=== PATIENT | male | born 1945 | race Caucasian/White ===

== ENCOUNTER 2016-06-17 09:07 | Inpatient (IN) | payer OTHER ==
[2016-06-17] VITALS (7 sets, daily range): BP systolic 117–147; BP diastolic 60–77; PULSE 72–80; RESP 18–20; TEMP 96.9–98.6; O2SAT 91–94
[~2016-06-17] VITALS: Ht 172.7 cm; Wt 80.7 kg
[~2016-06-17 09:07] MED LIST: AMIT50TA3 PO; AMLO5TAB92 PO; ASPI-1063 PO; BENA40TA2 PO; BUPR150T28 PO; GABA-331 PO; HYDR12.5 PO; LEVE500T13 PO; METO50TA7 PO; SIMV40TA5 PO
--- NOTE | 2016-06-17 09:17 | NUR ---
# 20 gauge angiocath placed to left hand. Use of asceptic technique. Opsite placed over site. Blood return noted. Flushed with 10 cc of normal saline. No evidence of infiltration noted. Patient tolerated well.
--- NOTE | 2016-06-17 09:18 | NUR ---
MD Mcmahon ar bedside.
--- NOTE | 2016-06-17 09:19 | NUR ---
Placed in room 5 . Placed on classroom monitor, blood pressure machine and pulse oximeter. To gown for exam. Side rails up.
[2016-06-17] MEDS ORDERED: KETOROLAC TROMETHAMINE 15 MG VIAL IVP ONE (09:30)
[2016-06-17 10:04] LABS: HEMOGLOBIN 10.3 g/dL (14.0-18.0); MEAN CORPUSCULAR HEMOGLOBIN 25 pg (27-31); MEAN CORPUSCULAR HGB CONC 32 % (32-36); MEAN CORPUSCULAR VOLUME 78 fL (79.0-98.0); PLATELET COUNT (AUTO) 364 K/uL (130-430); RED BLOOD CELL COUNT(AUTO) 4.12 MIL/uL (4.2-6.2); RED CELL DISTRIBUTION WIDTH 14.9 % (9.0-15.0); WHITE BLOOD COUNT (AUTO) 16.6 K/uL (4.8-10.8)
[2016-06-17 10:12] LABS: BLOOD GAS PH 7.428 (7.350-7.450)
[2016-06-17 10:13] LABS: ABG TOTAL HEMOGLOBIN 10.6 G/dL (12.0-18.0); BLOOD GAS BASE EXCESS 7.7 mmol/L (-3.0-3.0); BLOOD GAS COHb% 0.5 % (0.5-1.5); BLOOD GAS HHB 7.4 % (0.0-6.0); BLOOD O2Hb% 91.6 % (94.0-97.0)
[2016-06-17 10:14] LABS: ANION GAP 4 (5-15); CALCIUM 9.3 mg/dL (8.4-11.0); CHLORIDE 102 mmol/L (98-107); CREATININE 1.05 mg/dL (0.55-1.30); GLUCOSE 168 mg/dL (70-99); POTASSIUM 3.2 mmol/L (3.5-5.1); SODIUM SERUM 141 mmol/L (136-145); UREA NITROGEN, BLOOD 14 mg/dL (8-21)
[2016-06-17] MEDS ORDERED: ALBUTEROL SULFATE 0.083% 2.5 MG/3 ML VIAL.NEB IH ONE (10:15)
[2016-06-17] MEDS ORDERED: IPRATROPIUM BROM 0.5 MG/2.5 ML VIAL.NEB (ATROVENT) IH ONE (10:15)
[2016-06-17 10:19] LABS: ALANINE AMINOTRANSFERASE 18 U/L (12-78); ALBUMIN 3.4 g/dL (3.4-4.8); ASPARTATE AMINOTRANSFERASE 16 U/L (10-37); TOTAL BILIRUBIN 0.3 mg/dL (0.0-1.0); TOTAL PROTEIN, SERUM 7.4 g/dL (6.4-8.3)
--- NOTE | 2016-06-17 10:34 | NUR ---
Pt returned from X-Ray, experiencing back pain rates 9/10, V/S stable.
[2016-06-17] MEDS ORDERED: ONDANSETRON HCL 4 MG/2 ML VIAL IVP ONE (10:45)
[2016-06-17] MEDS ORDERED: MORPHINE 2 MG/ML INJ. SYRINGE IVP ONE (10:45)
[2016-06-17] MEDS ORDERED: POTASSIUM CHLORIDE 20 MEQ TAB.PRT.SR PO ONE (10:45)
--- NOTE | 2016-06-17 10:47 | NUR ---
Telemetry strip printed, interpreted as SINUS RHYTHM at 73 bpm, and placed on the chart.
[2016-06-17 10:54] LABS: ATYPICAL LYMPHOCYTES % 0 % (0-0); BAND % (MANUAL) 0 % (0-6); BASOPHILS % (MANUAL) 0 % (0-2); EOSINOPHILS % (MANUAL) 2 % (0-7); LYMPHOCYTES % (MANUAL) 10 % (20-46); MONOCYTES % (MANUAL) 6 % (0-11)
[2016-06-17] MEDS ORDERED: MORPHINE 2 MG/ML INJ. SYRINGE IVP PRN (11:00)
--- NOTE | 2016-06-17 11:00 | NUR ---
Dr. Mcmahon at bedside discussing plan of care with patient and visitor
--- NOTE | 2016-06-17 11:02 | NUR ---
Medicated with Morphine 2mg IVP per Dr. Mcmahon's order for 10/10 back pain, VS updated teach back fall precautions provided. On cardiac/SaO2 monitor with high alarms, bed low brake on side rails x 2 primary nurse notified
--- NOTE | 2016-06-17 11:29 | NUR ---
ADMISSION NOTE Received patient from ER via gurney. Patient admitted with diagnosis of Intractable back paion and Syncope. Patient is awake, alert, oriented X 3. Patient oriented to hospital room, call light, toileting, pain management and safety-teach back done. Patient informed that Brenda will be his nurse and that their room number is 134 [id number]. Personal belongings checked and Belongings List documented. Call light within reach.
--- NOTE | 2016-06-17 11:35 | NUR ---
Patient will be admitted to care of [facility]. Admitted to unit. Will go to room . Belongings list completed. Summary report printed. Report given to .
--- NOTE | 2016-06-17 13:00 | NUR ---
NOTE REC'D PT FROM ADMIT ALESSIA NESS AT THIS TIME. WENT IN AND MET PT AND HIS . ORIENTED PT TO ROOM AND NURSING ROUTINES AND PROCEDURES AT THIS TIME. PT RESTING IN BED WITH O2 ON AT 2L/NC. IV IN LEFT HAND INTACT AND PATENT AT THIS TIME. QUESTIONS/COMCERNS WERE ANSWERED AT THIS TIME. CALL LIGHT WITHIN REACH.
--- NOTE | 2016-06-17 13:52 | NUR ---
NOTE DR RIVAS WAS CALLED AND NOTIFIED THAT OUR CT MACHINE IS DOWN TILL TOMORROW. DR RIVAS SAID OKAY FOR TOMORROW. CALL LIGHT WITHIN REACH.
[2016-06-17] MEDS ORDERED: IPRATROPIUM BROM 0.5 MG/2.5 ML VIAL.NEB (ATROVENT) INH PRN (14:00)
[2016-06-17] MEDS ORDERED: ALBUTEROL SULFATE 0.083% 2.5 MG/3 ML VIAL.NEB INH PRN (14:00)
--- NOTE | 2016-06-17 16:30 | NUR ---
NOTE PT HAS BEEN RESTING IN BED. PT'S CAME BACK FROM HOME BRINING IN PT'S C-PAP FROM HOME FOR PT TO USE TONIGHT, PT'S HYGIENE KIT AND SOCKS AND SLIPPERS. PT DID NOT TOLERATE PT WELL THIS AFTERNOON DUE TO LOWER BACK PAIN AND SOB, THOUGH PT WAS ON O2 CYCLINDER DURING AMBULATION. PT RESTING IN BED WITH BY HIS SIDE. CALL LIGHT WITHIN REACH.
--- NOTE | 2016-06-17 17:15 | NUR ---
NOTE PT AND HIS ARE WAITING TO SPEAK TO DR RIVAS AT THIS TIME. DENIES ANY NEEDS AT THIS TIME. CALL LIGHT WITHIN REACH.
--- NOTE | 2016-06-17 18:20 | NUR ---
NOTE PT SITTING UP IN BED EATING HIS DINNER. VSS. NO SOB/RESP DISTRESS OR SEVERE BACK PAIN/DISCOMFORT NOTED AT THIS TIME. NO NEEDS NOTED AT THIS TIME. TELE UNIT INTACT AND ATTACHED AT THIS TIME. CALL LIGHT WITHIN REACH.
--- NOTE | 2016-06-17 19:15 | NUR ---
NOTE DR RIVAS ON THE FLOOR AND ASSESSMENT OF PT BEING DONE AT THIS TIME. PT AND PT'S AT BEDSIDE TO ANSWER DR RIVAS'S QUESTIONS AT THIS TIME.
--- NOTE | 2016-06-17 19:15 | NUR ---
change of shift.pt.initial assessment.pt.presents sob iv lock access.bedrest.slight pain.2 f/u re:pain,sob. call light placed w/in pt's reach.
[2016-06-17] MEDS: ALBUTEROL SULFATE 0.083% 2.5 MG/3 ML VIAL.NEB INH SCH (19:23)
[2016-06-17] MEDS: IPRATROPIUM BROM 0.5 MG/2.5 ML VIAL.NEB (ATROVENT) INH SCH (19:23)
[2016-06-17] MEDS ORDERED: ACETAMINOPHEN 325 MG TABLET PO PRN (19:30)
[2016-06-17] MEDS ORDERED: ONDANSETRON HCL 4 MG/2 ML VIAL IVP PRN (19:30)
[2016-06-17] MEDS ORDERED: HYDROcodone/ACETAMIN 10-325 MG TAB PO PRN (19:30)
[2016-06-17] MEDS ORDERED: guaiFENesin 200 MG/CODEINE 20 MG/ 10 ML UDC PO PRN (19:30)
--- NOTE | 2016-06-17 19:30 | NUR ---
NOTES RECEIVED THE PT FROM THE DAY NURSE,DR SOLITARIO IS AT THE BEDSIDE.PT A/A/[id number] IN PLACE AND SHOWS SR IV INTACT TO LT HAND ,NO REDNESS OR SWELLING NOTED.O2 VIA NC IN PLACE AT 2L/MIN.CALL LIGHT WITHIN REACH ,SAFETY MEASURES IN PROGRESS.CONTINUE TO MONITOR.
[2016-06-17] MEDS ORDERED: LEVOFLOXACIN 500 MG/D5W 100 ML IV SCH (20:00)
--- NOTE | 2016-06-17 21:00 | NUR ---
PT.MEDICATED W/MORPHINE;4MG IVP.abx:ivpb:levaquin adminsitered ;iv acces kine [id number].call light placed w/in pt's reach.c-pap applied / respiratory therpist.
[2016-06-17] MEDS: methylPREDNISolone SOD SUCC 40 MG/ML VIAL IVP SCH (21:30)
[2016-06-17] MEDS: MORPHINE 2 MG/ML INJ. SYRINGE IVP PRN (21:32)
--- NOTE | 2016-06-17 21:35 | NUR ---
NOTES PT WAS MEDICATED BY THE RN.FOR PAIN TO HIS BACK.WILL CONTINUE TO MONITOR.
--- NOTE | 2016-06-17 21:37 | NUR ---
NOTES NURSING REFLECTOR DRILLER AND DEBURRER WAS UNABLE TO FIND THE BACK BRACE.WILL HAVE CENTRAL SUPPLY GET US ONE IN THE AM.
--- NOTE | 2016-06-17 23:36 | NUR ---
NOTES PT RESTING WITH EYES CLOSED ,NO DYSPNEA NOTED.CONTINUE TO MONITOR.
[2016-06-18] VITALS (8 sets, daily range): BP systolic 126–164; BP diastolic 49–97; PULSE 21–92; RESP 18–22; TEMP 97.8–98.7; O2SAT 77–95
[2016-06-18] MEDS ORDERED: ACETYLCYSTEINE 20% 4 ML VIAL (RT) INH SCH
--- NOTE | 2016-06-18 | NUR ---
pt.assessed.pt.presents c-pap.o2 sat%=88% telephoned respiratory dept.apprised the tech.environmental compliance technician 2 f/u. call light placed w/in pt's reach.
[2016-06-18] MEDS: ALBUTEROL SULFATE 0.083% 2.5 MG/3 ML VIAL.NEB INH SCH ×2 (01:15→07:14)
[2016-06-18] MEDS: IPRATROPIUM BROM 0.5 MG/2.5 ML VIAL.NEB (ATROVENT) INH SCH ×4 (01:16→20:56)
--- NOTE | 2016-06-18 01:47 | NUR ---
NOTES PT SLEEPING WITH C PAP ON,NO DISTRESS NOTED.
--- NOTE | 2016-06-18 03:18 | NUR ---
NOTES PT WITH C PAP IN PLACE,CALL LIGHT WITHIN REACH.CONTINUE TO MONITOR.
--- NOTE | 2016-06-18 04:07 | NUR ---
NOTES PT ASKING FOR PAIN MEDICATION AND THEN HE WOULD LIKE TO STAND TO VOID.C PAP REMOVED PER REQUEST.CONTINUE TO MONITOR.
[2016-06-18] MEDS: MORPHINE 2 MG/ML INJ. SYRINGE IVP PRN ×3 (04:14→17:32)
--- NOTE | 2016-06-18 04:30 | NUR ---
pt.assessed.pt.requested pain medication.i have administered morphine:4mg ivp. pt.had removed the c-pap apparatus. i assessed the o2 %=90.i applied o2=3l/min vi nasal cannulae.o2 sat %re-assessed.o2 sat improved 93% 2 f/u. call light placed w/in pt's reach.
--- NOTE | 2016-06-18 05:20 | NUR ---
NOTES PT VOIDED 500CC OF NATALIA COLORED URINE VIA THE URINAL.CALL LIGHT WITHIN REACH.PT IS C/O THE MONITOR WIRES AND THE NC ARE TANGLED UP.WIRES UNTANGLED.PT WITH NO OTHER COMPLAINTS.
--- NOTE | 2016-06-18 06:10 | NUR ---
CLOSING NOTES CLOSING NOTES RESTING WITH WITH EYES CLOSED.WILL ENDORSE THE CARE OF THE RT TO THE DAY NURSE
[2016-06-18] MEDS ORDERED: INSULIN REGULAR, HUMAN 100 UNITS/ML, 10 ML VIAL (novoLIN R) SUBCUT PRN (07:00)
[2016-06-18 07:08] LABS: BASOPHILS % (AUTO) 0.1 % (0.0-2.0); HEMATOCRIT 30.3 % (36-54); HEMOGLOBIN 9.6 g/dL (14.0-18.0); LYMPHOCYTES # (AUTO) 0.6 K/uL (1.0-5.5); LYMPHOCYTES % (AUTO) 5.1 % (20.5-51.5); MEAN CORPUSCULAR HEMOGLOBIN 24 pg (27-31); MEAN CORPUSCULAR HGB CONC 32 % (32-36); MEAN CORPUSCULAR VOLUME 77 fL (79.0-98.0); MONOCYTES # (AUTO) 0.2 K/uL (0.0-1.0); MONOCYTES % (AUTO) 1.8 % (1.7-9.3); NEUTROPHILS # (AUTO) 11.7 K/uL (1.8-7.7); PLATELET COUNT (AUTO) 307 K/uL (130-430); RED BLOOD CELL COUNT(AUTO) 3.94 MIL/uL (4.2-6.2); RED CELL DISTRIBUTION WIDTH 14.6 % (9.0-15.0); WHITE BLOOD COUNT (AUTO) 12.5 K/uL (4.8-10.8)
[2016-06-18 07:20] LABS: ANION GAP 5 (5-15); CALCIUM 8.9 mg/dL (8.4-11.0); CHLORIDE 99 mmol/L (98-107); CREATININE 0.81 mg/dL (0.55-1.30); GLUCOSE 148 mg/dL (70-99); PHOSPHORUS 4.1 mg/dL (2.7-4.5); POTASSIUM 3.6 mmol/L (3.5-5.1); SODIUM SERUM 137 mmol/L (136-145); UREA NITROGEN, BLOOD 12 mg/dL (8-21)
[2016-06-18 07:42] LABS: BLOOD GAS PH 7.436 (7.350-7.450)
[2016-06-18 07:43] LABS: ABG TOTAL HEMOGLOBIN 10.7 G/dL (12.0-18.0); BLOOD GAS COHb% 0.9 % (0.5-1.5); BLOOD GAS HHB 24.5 % (0.0-6.0); BLOOD O2Hb% 74.1 % (94.0-97.0)
--- NOTE | 2016-06-18 08:00 | NUR ---
Initial Note Patient A/O x4. Respirations even and unlabored with use of Oxymizer. Pain tolerable as long as movement is kept to a minimum per patient statement. Family at bedside. Plan of care reviewed with patient and . Use of call light reviewed with patient. Fall and safety precautions in place.
--- NOTE | 2016-06-18 08:05 | NUR ---
Notes Informed Dr. Marte of critical ABG, low O2 saturation of 75% and BNP. Stated patient was placed on oxymizer of 6. She stated that was fine, no new orders were given.
--- NOTE | 2016-06-18 09:05 | NUR ---
Nutrition Update Mohinder Scale 14 noted. Pt admitted for syncope/intractable back pain. Diet: [facility] BMI: 27.1 kg/m2 RD to follow per nutrition care standards.
[2016-06-18] MEDS: buPROPion HCL 150 MG TABLET.SA PO SCH (09:42)
[2016-06-18] MEDS: LACTOBACILLUS RHAMNOSUS GG 1 CAP CAPSULE PO SCH ×2 (09:42→20:04)
[2016-06-18] MEDS: METOPROLOL SUCCINATE 50 MG TAB.SR.24H (TOPROL XL) PO SCH (09:43)
[2016-06-18] MEDS: ASPIRIN 81 MG TABLET(ECOTRIN) PO SCH (09:44)
[2016-06-18] MEDS: BENAZEPRIL HCL 20 MG TABLET (LOTENSIN) PO SCH (09:45)
[2016-06-18] MEDS: methylPREDNISolone SOD SUCC 40 MG/ML VIAL IVP SCH ×2 (09:48→20:04)
[2016-06-18] MEDS: amLODIPine BESYLATE 10 MG TABLET PO SCH (09:50)
[2016-06-18] MEDS ORDERED: CHOLECALCIFEROL (VITAMIN D3) 2,000 UNIT TABLET PO ONE (10:15)
[2016-06-18] MEDS ORDERED: IOHEXOL 100 ML IV ONE (11:40)
[2016-06-18] MEDS: HYDROcodone/ACETAMIN 5-325 MG TAB (NORCO/ VICODIN) PO PRN (11:45)
--- NOTE | 2016-06-18 13:00 | NUR ---
Notes Patient stated he had difficulty breathing. O2 saturation checked to be 94%, positioned patient upright, had patient perform breathing technique in order to relax. Patient quickly resumed regular breathing pattern.
[2016-06-18] MEDS: LEVALBUTEROL HCL 0.63 MG/3 ML VIAL.NEB INH SCH (13:59)
[2016-06-18] MEDS: CALCIUM 500 MG/TAB PO SCH ×2 (15:10→20:05)
--- NOTE | 2016-06-18 15:50 | NUR ---
Notes Informed Dr. Araya of abnormal CTA Neck with contrast results. TO given to consult Mary Cruz. TO entered.
--- NOTE | 2016-06-18 17:43 | NUR ---
Notes Dr. Marte was made aware that Dr. Blake was unavailable to consult. She gave TO to consult Lorie Dang and if he was not available to consult Dr. Sandhu. Dr. Puente's exchange has been informed of need for consult.
--- NOTE | 2016-06-18 18:56 | NUR ---
Notes Lorie Dang has called and was informed of the request for consult. Report given via SBAR. Dr. Puente requested for CD of CTA neck to be ready when he comes in to see patient. Radiology department has been informed and asked to create CD.
--- NOTE | 2016-06-18 18:59 | NUR ---
Closing Note Patient needs met throughout shift. Patient tolerating oxymizer well. Will continue to monitor until patient care is endorsed to oncoming shift nurse.
--- NOTE | 2016-06-18 19:45 | NUR ---
PM SHIFT ASSESSMENT Received patient sitting up in bed, aox4, in no distress, Oxymizer @ 6l in place, vitals stable. Patient denies any pain or discomfort at this time. Lumbosacral back brace in place, patient updated on plan of care. Verbalized understanding, compliant. Oriented to use call light and phone for nurse assistance. Fall and safety measures in place, will continue to monitor.
[2016-06-18] MEDS: SIMVASTATIN 40 MG TABLET PO SCH (20:04)
[2016-06-18] MEDS: AMITRIPTYLINE HCL 25 MG TABLET (ELAVIL) PO SCH (20:04)
--- NOTE | 2016-06-18 20:11 | NUR ---
MD Dr. Puente ( vascular surgeon) at patient's bedside. Patient's due medications given, educated on fall and side effects. Patient verbalized understanding. Safety measures in place.
--- NOTE | 2016-06-18 20:31 | NUR ---
CHECKED ON THE PATIENT RIGHT NOW PATIENT IS IN BED SLEEPING
--- NOTE | 2016-06-18 21:58 | NUR ---
CHECKING ON THE PATIENT IF HE NEEDS ANYTHING PATIENTSTATED HIS OKAY
--- NOTE | 2016-06-18 22:17 | NUR ---
RN ROUNDS Patient was on cpap but 02 saturation low, patient is alert and denies any shortness of breath, rt at bedside administering breathing tx. Will monitor patient.
--- NOTE | 2016-06-18 23:15 | NUR ---
RN ROUNDS Patient resting quietly in bed, o2 sat on cpap 90% at this time.
[2016-06-19] VITALS (7 sets, daily range): BP systolic 134–169; BP diastolic 77–93; PULSE 76–87; RESP 18; TEMP 97.1–98.2; O2SAT 92–97
--- NOTE | 2016-06-19 00:08 | NUR ---
RN ROUNDS Patient sleeping, respirations even and unlabored, remains on cpap. vitals stable, safety measures in place, call light within reach, will monitor.
--- NOTE | 2016-06-19 01:12 | NUR ---
checked on patient he is sleeping for now
[2016-06-19] MEDS: LEVALBUTEROL HCL 0.63 MG/3 ML VIAL.NEB INH SCH ×4 (01:28→19:35)
[2016-06-19] MEDS: IPRATROPIUM BROM 0.5 MG/2.5 ML VIAL.NEB (ATROVENT) INH SCH ×4 (01:29→19:34)
--- NOTE | 2016-06-19 02:19 | NUR ---
PATIENT IS SLEEPING
--- NOTE | 2016-06-19 02:30 | NUR ---
RN ROUNDS Patient sleeping, respirations even and unlabored, remains on cpap. Safety measures in place, call light within reach, will monitor.
--- NOTE | 2016-06-19 03:45 | NUR ---
CPAP Patient removed cpap states he doesn't want to wear it anymore. Placed back on Oxymizer @ 3L. RT aware.
[2016-06-19] MEDS: MORPHINE 2 MG/ML INJ. SYRINGE IVP PRN (04:13)
--- NOTE | 2016-06-19 04:15 | NUR ---
RN ROUNDS Patient awake, c/o of back pain, medicated with morphine 4 mg IVP for pain management, vitals stable, safety measures in place, call light within reach, will monitor.
[2016-06-19] MEDS ORDERED: RISEDRONATE SODIUM 35 MG TABLET PO SCH (06:00)
--- NOTE | 2016-06-19 06:44 | NUR ---
RN ROUNDS Patient awake, no sob noted, remains on Oxymizer 3 liters, denies any pain or discomfort at this time. Patient needs attended to, safety measures in place, call light within reach, will continue to monitor until report given to am nurse.
[2016-06-19 07:27] LABS: BASOPHILS % (AUTO) 0.1 % (0.0-2.0); HEMATOCRIT 30.6 % (36-54); HEMOGLOBIN 9.8 g/dL (14.0-18.0); LYMPHOCYTES # (AUTO) 1.2 K/uL (1.0-5.5); LYMPHOCYTES % (AUTO) 7.3 % (20.5-51.5); MEAN CORPUSCULAR HEMOGLOBIN 25 pg (27-31); MEAN CORPUSCULAR HGB CONC 32 % (32-36); MEAN CORPUSCULAR VOLUME 79 fL (79.0-98.0); MONOCYTES % (AUTO) 6.5 % (1.7-9.3); NEUTROPHILS # (AUTO) 13.9 K/uL (1.8-7.7); NEUTROPHILS % (AUTO) 86.1 % (40.0-70.0); PLATELET COUNT (AUTO) 365 K/uL (130-430); RED CELL DISTRIBUTION WIDTH 14.6 % (9.0-15.0); WHITE BLOOD COUNT (AUTO) 16.1 K/uL (4.8-10.8)
[2016-06-19 07:48] LABS: ANION GAP 5 (5-15); CALCIUM 9.3 mg/dL (8.4-11.0); CHLORIDE 101 mmol/L (98-107); CREATININE 0.68 mg/dL (0.55-1.30); GLUCOSE 141 mg/dL (70-99); POTASSIUM 3.8 mmol/L (3.5-5.1); SODIUM SERUM 140 mmol/L (136-145); UREA NITROGEN, BLOOD 14 mg/dL (8-21)
--- NOTE | 2016-06-19 08:05 | NUR ---
INITIAL ROUNDS Received pt AAOx4, no s/s resp distress, c/o pain to his back-back brace readjusted for support and comfort. Will check on pain medications. Plan of care for the day reviewed with pt-pt verbalized his understanding. Pain control, skin and safety discussed-teach back done. Pt encouraged to call nursing for assist to bedside chair for safety-pt verbalized his understanding. Contact phone number explained, call light within reach.
[2016-06-19] MEDS: methylPREDNISolone SOD SUCC 40 MG/ML VIAL IVP SCH ×2 (08:53→21:11)
[2016-06-19] MEDS: MORPHINE 4 MG/ML INJ. SYRINGE IVP PRN ×4 (08:53→21:11)
[2016-06-19] MEDS: LACTOBACILLUS RHAMNOSUS GG 1 CAP CAPSULE PO SCH ×2 (08:55→20:14)
[2016-06-19] MEDS: CHOLECALCIFEROL (VITAMIN D3) 2,000 UNIT TABLET PO SCH (08:55)
[2016-06-19] MEDS: CALCIUM 500 MG/TAB PO SCH ×3 (08:55→20:14)
[2016-06-19] MEDS: ASPIRIN 81 MG TABLET(ECOTRIN) PO SCH (08:55)
[2016-06-19] MEDS: BENAZEPRIL HCL 20 MG TABLET (LOTENSIN) PO SCH (08:56)
[2016-06-19] MEDS: METOPROLOL SUCCINATE 50 MG TAB.SR.24H (TOPROL XL) PO SCH (08:57)
[2016-06-19] MEDS: amLODIPine BESYLATE 10 MG TABLET PO SCH (08:58)
[2016-06-19] MEDS: buPROPion HCL 150 MG TABLET.SA PO SCH (08:58)
--- NOTE | 2016-06-19 10:13 | NUR ---
met with pt at bedside. he is alert. lives in home with spouse. has fww, cpap with o2 at [facility]. brace ordered from [employer] yesterday. plan home tomorrow when pain is more controlled. at bedside and encouraged to learn safety techniques for assisting spouse. [facility]/frederic/nathaly hcp [phone]
--- NOTE | 2016-06-19 10:39 | NUR ---
ROUNDS Pt sitting up in bed visiting with his , no c/o SOB, no s/s resp distress, no further c/o pain or discomfort. Pt's back brace readjusted for comfort and support. Needs met, call light within reach.
--- NOTE | 2016-06-19 13:10 | NUR ---
ROUNDS/PAIN Pt in bed visiting with his , no s/s resp distress, c/o pain to his back-pt given Morphine as ordered. Pt repositioned for comfort. Call light within reach.
--- NOTE | 2016-06-19 13:15 | NUR ---
PHYSICAL THERAPY CO-SIGN The Physical Therapy Progress Notes documented by Straight Knife Machine Cutter have been reviewed. Reviewed/Co-Signed by: Sydney Bhatti, PT Documentation Done by: Jef White PTA I concur with the documentation of this MIDDLE SCHOOL VOLLEYBALL COACH. Plan: continue PT as per plan of care. Addendum: 06/19/16 at 1332 by Sydney Bhatti PT Amended: Links added.
[2016-06-19] MEDS: HYDROcodone/ACETAMIN 5-325 MG TAB (NORCO/ VICODIN) PO PRN (15:25)
--- NOTE | 2016-06-19 15:35 | NUR ---
ROUNDS/PAIN Pt c/o low back pain, pt given Galt as ordered. Pt assisted with repositioning in bed and with back brace for comfort. Needs met, call light within reach.
--- NOTE | 2016-06-19 18:40 | NUR ---
CLOSING NOTE Pt resting quietly in bed with no s/s resp distress, no further c/o pain or discomfort. Needs met, call light within reach.
--- NOTE | 2016-06-19 19:50 | NUR ---
NOTES; SEEN PT IN BED. A/A/O X4, NO ACUTE DISTRESS NOTED. VITAL SIGNS STABLE, AFEBRILE. PT IS ON OXYMIZER AT 2L OF O2. BACK BRACE IN PLACE. IV SALINE LOCK TO THE LEFT HAND, PATENT. PT STATED TOLERABLE PAIN AT THIS TIME. BED LOCKED AND IN LOW POSITION, SIDE RAILS UP X3 PER PT REQUEST. INSTRUCTED PT ON THE USE OF CALL LIGHT . PT VERBALIZED UNDERSTANDING. CALL LIGHT AND BEDSIDE TABLE WITHIN REACH.
[2016-06-19] MEDS: SIMVASTATIN 40 MG TABLET PO SCH (20:14)
[2016-06-19] MEDS: AMITRIPTYLINE HCL 25 MG TABLET (ELAVIL) PO SCH (20:14)
--- NOTE | 2016-06-19 20:19 | NUR ---
NOTES; SCHEDULED PO MEDICATION ADMINISTERED. PT TOLERATED MEDS WELL. WILL CONTINUE TO MONITOR.
--- NOTE | 2016-06-19 22:00 | NUR ---
NOTES; RT ASSISTED PT WITH. APPLICATION OF C-PAP. PT TOLERATING C-PAP WELL.
[2016-06-20] VITALS (12 sets, daily range): BP systolic 130–158; BP diastolic 62–88; PULSE 63–98; RESP 17–19; TEMP 97.8–99; O2SAT 89–95
--- NOTE | 2016-06-20 | NUR ---
NOTES; Patient sleeping, respirations even and unlabored, remains on cpap. Safety measures in place, call light within reach, will monitor.
[2016-06-20] MEDS: LEVALBUTEROL HCL 0.63 MG/3 ML VIAL.NEB INH SCH ×2 (01:00→08:11)
[2016-06-20] MEDS: IPRATROPIUM BROM 0.5 MG/2.5 ML VIAL.NEB (ATROVENT) INH SCH ×5 (01:00→23:28)
--- NOTE | 2016-06-20 02:00 | NUR ---
NOTES; Patient sleeping, respirations even and unlabored, remains on cpap. Safety measures in place, call light within reach, will monitor.
[2016-06-20] MEDS: MORPHINE 4 MG/ML INJ. SYRINGE IVP PRN ×3 (03:55→14:05)
--- NOTE | 2016-06-20 04:00 | NUR ---
NOTES; Patient sleeping, respirations even and unlabored, remains on cpap. Safety measures in place, call light within reach, will monitor.
--- NOTE | 2016-06-20 06:50 | NUR ---
NOTES; Patient awake, no sob noted, remains on Oxymizer 2 liters, denies any pain or discomfort at this time. Patient needs attended to, safety measures in place, call light within reach, will continue to monitor until report given to am nurse.
--- NOTE | 2016-06-20 07:20 | NUR ---
initial notes: pt on bed resting. i.v. access patent. discussed plan of care. call light within reach. report given at bedside.
[2016-06-20] MEDS: methylPREDNISolone SOD SUCC 40 MG/ML VIAL IVP SCH (08:41)
[2016-06-20] MEDS: CHOLECALCIFEROL (VITAMIN D3) 2,000 UNIT TABLET PO SCH (08:41)
[2016-06-20] MEDS: METOPROLOL SUCCINATE 50 MG TAB.SR.24H (TOPROL XL) PO SCH (08:42)
[2016-06-20] MEDS: BENAZEPRIL HCL 20 MG TABLET (LOTENSIN) PO SCH (08:43)
[2016-06-20] MEDS: ASPIRIN 81 MG TABLET(ECOTRIN) PO SCH (08:43)
[2016-06-20] MEDS: buPROPion HCL 150 MG TABLET.SA PO SCH (08:43)
[2016-06-20] MEDS: amLODIPine BESYLATE 10 MG TABLET PO SCH (08:44)
[2016-06-20] MEDS: CALCIUM 500 MG/TAB PO SCH ×3 (08:44→21:04)
[2016-06-20] MEDS: LACTOBACILLUS RHAMNOSUS GG 1 CAP CAPSULE PO SCH ×2 (08:44→21:04)
--- NOTE | 2016-06-20 09:30 | NUR ---
P.T. seen by PT and able to ambulate in the hallway.
--- NOTE | 2016-06-20 10:00 | NUR ---
rounds: pt on bed. no distress noted. at bedside.
[2016-06-20] MEDS: HYDROcodone/ACETAMIN 7.5-325 MG TAB PO SCH ×3 (12:00→23:39)
[2016-06-20] MEDS: methylPREDNISolone SOD SUCC/PF 62.5 MG/ML VIAL IVP SCH ×2 (14:10→21:04)
[2016-06-20] MEDS ORDERED: MILK OF MAGNESIA 30 ML UDC PO PRN (14:30)
--- NOTE | 2016-06-20 14:30 | NUR ---
B.M. no BM for 3 days as per states and requested BM meds. paged Dr. Hoover with an order of MOM 30cc. P.O. x1 day and qhs PRN.
[2016-06-20] MEDS ORDERED: MILK OF MAGNESIA 30 ML UDC PO ONE (15:00)
[2016-06-20] MEDS: ALBUTEROL SULFATE 0.083% 2.5 MG/3 ML VIAL.NEB INH SCH ×3 (15:26→23:27)
--- NOTE | 2016-06-20 15:30 | NUR ---
rounds: pt on bed. no distress noted. breathing tx given.
--- NOTE | 2016-06-20 19:30 | NUR ---
closing notes: pt on bed resting. stable. at bedside. repositioned patient. report given at bedside.
--- NOTE | 2016-06-20 20:00 | NUR ---
Initial Notes Received patient laying in bed, awake, alert, oriented, family at bedside. Patient denies any acute distress or pain at this time. Vital signs stable. Breathing even and unlabored on 2L Oxymizer. IV site patent/clean/dry. Patient's own CPAP machine noted at bedside, patient states he uses it when he goes to sleep. Patient wearing a back brace/support, tolerating well, stated he fell prior to admission. Educated patient on use of call light for assistance and fall precautions. Patient verbalized understanding. Call light in hand, will continue to monitor.
[2016-06-20] MEDS: SIMVASTATIN 40 MG TABLET PO SCH (21:04)
[2016-06-20] MEDS: AMITRIPTYLINE HCL 25 MG TABLET (ELAVIL) PO SCH (21:05)
--- NOTE | 2016-06-20 22:00 | NUR ---
Rounds Patient resting in bed with eyes closed, easily aroused upon nurse entering room. Patient denies any acute distress or pain. Breathing even and unlabored on home CPAP machine, setting 13 on 7L oxygen. Needs addressed. Call light in hand, fall precautions in place. Will continue to monitor.
[2016-06-21] VITALS (12 sets, daily range): BP systolic 117–157; BP diastolic 66–91; PULSE 63–87; RESP 14–19; TEMP 97.4–98.7; O2SAT 92–96
--- NOTE | 2016-06-21 | NUR ---
Rounds Patient resting in bed with eyes closed, easily aroused upon nurse entering. Patient denies any acute distress or pain at this time. Breathing even and unlabored on CPAP. RT in room adjusting machine. Call light in hand, fall precautions in place. Will continue to monitor.
--- NOTE | 2016-06-21 02:00 | NUR ---
Rounds Patient resting in bed with eyes closed, easily aroused. Patient denies any acute distress or pain at this time. Breathing even and unlabored on CPAP. RT called multiple times for patient due to desaturation on CPAP, patient asymptomatic. Needs addressed. Call light in hand, fall precautions in place. Will continue to monitor.
--- NOTE | 2016-06-21 04:00 | NUR ---
Rounds Patient resting in bed with eyes closed. No distress noted, breathing even and unlabored. Call light in hand, will continue to monitor.
[2016-06-21] MEDS: ALBUTEROL SULFATE 0.083% 2.5 MG/3 ML VIAL.NEB INH SCH ×5 (04:06→23:49)
[2016-06-21] MEDS: IPRATROPIUM BROM 0.5 MG/2.5 ML VIAL.NEB (ATROVENT) INH SCH ×5 (04:06→23:49)
[2016-06-21] MEDS: methylPREDNISolone SOD SUCC/PF 62.5 MG/ML VIAL IVP SCH (05:04)
[2016-06-21] MEDS: HYDROcodone/ACETAMIN 7.5-325 MG TAB PO SCH ×4 (05:04→23:17)
--- NOTE | 2016-06-21 06:29 | NUR ---
Closing Notes Patient resting in bed with eyes closed, easily aroused. Patient denies any acute distress or pain at this time. Breathing even and unlabored on CPAP. IV site patent/clean/dry, no S/S infection/infiltration noted. Needs addressed throughout shift. Call light in hand, fall precautions in place. Will continue to monitor for changes and safety, and endorse all patient care/needs to oncoming nurse.
[2016-06-21 07:02] LABS: BASOPHILS % (AUTO) 0.1 % (0.0-2.0); HEMOGLOBIN 9.9 g/dL (14.0-18.0); LYMPHOCYTES # (AUTO) 1.1 K/uL (1.0-5.5); LYMPHOCYTES % (AUTO) 8.7 % (20.5-51.5); MEAN CORPUSCULAR HEMOGLOBIN 25 pg (27-31); MEAN CORPUSCULAR HGB CONC 32 % (32-36); MEAN CORPUSCULAR VOLUME 77 fL (79.0-98.0); MONOCYTES # (AUTO) 0.4 K/uL (0.0-1.0); MONOCYTES % (AUTO) 3.4 % (1.7-9.3); NEUTROPHILS # (AUTO) 10.6 K/uL (1.8-7.7); NEUTROPHILS % (AUTO) 87.8 % (40.0-70.0); PLATELET COUNT (AUTO) 423 K/uL (130-430); RED BLOOD CELL COUNT(AUTO) 4.02 MIL/uL (4.2-6.2); RED CELL DISTRIBUTION WIDTH 14.7 % (9.0-15.0); WHITE BLOOD COUNT (AUTO) 12.1 K/uL (4.8-10.8)
[2016-06-21 07:17] LABS: ANION GAP 4 (5-15); CALCIUM 9.5 mg/dL (8.4-11.0); CHLORIDE 98 mmol/L (98-107); CREATININE 0.82 mg/dL (0.55-1.30); GLUCOSE 190 mg/dL (70-99); POTASSIUM 4.1 mmol/L (3.5-5.1); SODIUM SERUM 136 mmol/L (136-145); UREA NITROGEN, BLOOD 21 mg/dL (8-21)
--- NOTE | 2016-06-21 07:40 | NUR ---
AM NOTE Received patient laying in bed, awake, alert, oriented, family at bedside, patient denies any acute distress or pain at this time, vital signs stable, assessment complete, IV site patent/clean/dry, patient wearing a back brace for support, tolerating well, Educated patient on use of call light for assistance, patient verbalized understanding. Call light in hand, bed in lowest position, bed alarm on, two side rails up, fall precaution in place, will continue to monitor.
[2016-06-21] MEDS: BENAZEPRIL HCL 20 MG TABLET (LOTENSIN) PO SCH (08:38)
[2016-06-21] MEDS: ASPIRIN 81 MG TABLET(ECOTRIN) PO SCH (08:38)
[2016-06-21] MEDS: LACTOBACILLUS RHAMNOSUS GG 1 CAP CAPSULE PO SCH ×2 (08:38→21:15)
[2016-06-21] MEDS: buPROPion HCL 150 MG TABLET.SA PO SCH (08:38)
[2016-06-21] MEDS: CALCIUM 500 MG/TAB PO SCH ×3 (08:38→21:15)
[2016-06-21] MEDS: amLODIPine BESYLATE 10 MG TABLET PO SCH (08:39)
[2016-06-21] MEDS: CHOLECALCIFEROL (VITAMIN D3) 2,000 UNIT TABLET PO SCH (08:39)
[2016-06-21] MEDS: METOPROLOL SUCCINATE 50 MG TAB.SR.24H (TOPROL XL) PO SCH (08:39)
[2016-06-21] MEDS: CLOPIDOGREL BISULFATE 75 MG TABLET PO SCH (08:39)
--- NOTE | 2016-06-21 08:40 | NUR ---
MEDICATIONS Gave patient morning medications, informed patient of potential side effects of medications, patient verbalized understanding, bed left in lowest position, bed alarm on, two side rails up, call brito in patient's hand, fall precautions in place. Will continue to monitor
[2016-06-21] MEDS: MORPHINE 4 MG/ML INJ. SYRINGE IVP PRN (09:55)
--- NOTE | 2016-06-21 11:00 | NUR ---
RN ROUNDS PATIENT IS RESTING IN BED, NO COMPLAINTS OF PAIN, NO SIGNS OF DISTRESS, INSTRUCTED PATIENT TO USE CALL COYLE IF ASSISTANCE IS NEEDED, PATIENT VERBALIZED UNDERSTANDING, BED ALARM ON, BED IN LOWEST POSITION, TWO SIDE RAILS UP, CALL COYLE IN HAND, FALL PRECAUTIONS IN PLACE, WILL CONTINUE TO MONITOR
[2016-06-21] MEDS ORDERED: HYDROcodone/ACETAMIN 7.5-325 MG TAB PO ONE (12:00)
--- NOTE | 2016-06-21 12:20 | NUR ---
RN ROUNDS PATIENT IS RESTING IN BED, WATCHING TV, NO COMPLAINTS OF DISCOMFORT, INSTRUCTED PATIENT TO USE CALL COYLE WHEN ASSISTANCE IS NEEDED, PATIENT VERBALIZED UNDERSTANDING, BED ALARM ON, BED IN LOWEST POSITION, TWO SIDE RAILS UP, CALL COYLE LEFT IN PATIENT'S HAND, FALL PRECAUTIONS IN PLACE, WILL CONTINUE TO MONITOR
--- NOTE | 2016-06-21 14:30 | NUR ---
RN ROUNDS PATIENT RESTING IN BED, NO COMPLAINTS OF PAIN OR DISCOMFORT, NO SIGNS OF DISTRESS, INSTRUCTED PATIENT TO USE CALL COYLE IF ASSISTANCE IS NEEDED, PATIENT VERBALIZED UNDERSTANDING, BED IN LOWEST POSITION, BED ALARM ON, TWO SIDE RAILS UP, CALL COYLE WITHIN PATIENT'S REACH, FALL PRECAUTIONS IN PLACE, WILL CONTINUE TO MONITOR
--- NOTE | 2016-06-21 16:05 | NUR ---
RN ROUNDS PATIENT IS RESTING IN BED, IS AT BEDSIDE, NO COMPLAINTS OF PAIN OF DISCOMFORT, INSTRUCTED PATIENT TO USE CALL COYLE IF ASSISTANCE IS NEEDED, PATIENT VERBALIZED UNDERSTANDING, CALL COYLE LEFT IN PATIENT'S HAND, BED IN LOWEST POSITION, BED ALARM ON, TWO SIDE RAILS UP, FALL PRECAUTIONS IN PLACE, WILL CONTINUE TO MONITOR PATIENT.
--- NOTE | 2016-06-21 16:30 | NUR ---
Dr. Araya Notified Dr. Araya that patient has been constipated for 5 days and the MOM is not scheduled until HS, Dr. Araya gave new orders of Docusate 250 mg BID daily, MOM 30cc PO x1, Lactulose 30 ml daily PRN for constipation and a fleet enema x1 daily for constipation, will carry out orders.
[2016-06-21] MEDS ORDERED: NA PHOS,M-B/NA PHOS,DI-BA 118 ML (FLEET ENEMA) RC PRN (16:45)
[2016-06-21] MEDS ORDERED: LACTULOSE 20 GM/30 ML UDC PO PRN (16:45)
[2016-06-21] MEDS ORDERED: MILK OF MAGNESIA 30 ML UDC PO ONE (16:45)
--- NOTE | 2016-06-21 18:46 | NUR ---
CLOSING NOTES PATIENT RESTING IN BED, EYES CLOSED, BREATHING IS EVEN AND UNLABORED, NO SIGNS OF DISTRESS, ALL NEEDS MET, BED IN LOWEST POSITION, THREE SIDE RAILS UP, BED ALARM ON, FALL AND ASPIRATION PRECAUTIONS IN PLACE, CALL LIGHT NEXT TO THE PATIENT'S HAND, WILL ENDORSE REPORT TO NOC SHIFT NURSE.
--- NOTE | 2016-06-21 20:00 | NUR ---
Initial Notes and BM Received patient resting in bed, awake, alert, oriented, at bedside. Patient denies any acute distress or luis at this time. Vital signs stable. Breathing even and unlabored on 2L Oximizer. IV site patent/clean/dry. Needs addressed. Per , patient just had a moderate sized bowel movement. Educated patient and family on use of call light for assistance, both verbalized understanding. Call light in hand, will continue to monitor.
[2016-06-21] MEDS ORDERED: methylPREDNISolone SOD SUCC 40 MG/ML VIAL IVP SCH (21:00)
[2016-06-21] MEDS: AMITRIPTYLINE HCL 25 MG TABLET (ELAVIL) PO SCH (21:15)
[2016-06-21] MEDS: DOCUSATE SODIUM 250 MG CAPSULE PO SCH (21:15)
[2016-06-21] MEDS: SIMVASTATIN 40 MG TABLET PO SCH (21:15)
--- NOTE | 2016-06-21 22:00 | NUR ---
Rounds Patient resting in bed with eyes closed, easily aroused. Patient denies any acute distress or pain. Patient currently on CPAP, setting 13, 9L O2 titrated by RT, breathing even and unlabored. Needs addressed. When asked if patient would like to be woken at midnight for scheduled pain medication, patient said 'no'. Call light in hand, fall precautions in place. Will continue to monitor.
[2016-06-22] VITALS (10 sets, daily range): BP systolic 142–154; BP diastolic 71–89; PULSE 61–77; RESP 18–20; TEMP 97.4–99.4; O2SAT 91–94
--- NOTE | 2016-06-22 | NUR ---
Rounds Patient resting in bed with eyes closed. No acute distress noted, breathing even and unlabored on CPAP. Scheduled pain medication held due to patient sleeping. Call light in hand, fall precautions in place. Will continue to monitor.
--- NOTE | 2016-06-22 02:00 | NUR ---
Rounds Patient resting in bed with eyes closed, easily aroused. Patient denies any acute distress or pain. Breathing even and unlabored. Assisted patient to BSC and back to bed. Call light in hand, fall precautions in place. Will continue to monitor.
[2016-06-22] MEDS: IPRATROPIUM BROM 0.5 MG/2.5 ML VIAL.NEB (ATROVENT) INH SCH ×6 (03:34→23:05)
[2016-06-22] MEDS: ALBUTEROL SULFATE 0.083% 2.5 MG/3 ML VIAL.NEB INH SCH ×6 (03:34→23:04)
--- NOTE | 2016-06-22 04:00 | NUR ---
Rounds Patient resting in bed with eyes closed. No acute distress noted, breathing even and unlabored. Call light in hand, will continue to monitor.
[2016-06-22] MEDS: HYDROcodone/ACETAMIN 7.5-325 MG TAB PO SCH ×4 (05:34→18:00)
--- NOTE | 2016-06-22 06:44 | NUR ---
Closing Notes Patient resting in bed with eyes closed, easily aroused. Patient denies any distress or pain at this time. Breathing even and unlabored on 2L Oximizer. IV site patent/clean/dry, no S/S infection/infiltration noted. Needs addressed throughout shift. Call light in hand, fall precautions in place. Will continue to monitor for changes and safety, and endorse all patient care/needs to oncoming nurse.
[2016-06-22 07:21] LABS: ANION GAP 5 (5-15); CALCIUM 8.9 mg/dL (8.4-11.0); CHLORIDE 98 mmol/L (98-107); CREATININE 0.92 mg/dL (0.55-1.30); GLUCOSE 207 mg/dL (70-99); POTASSIUM 4.1 mmol/L (3.5-5.1); SODIUM SERUM 137 mmol/L (136-145); UREA NITROGEN, BLOOD 23 mg/dL (8-21)
[2016-06-22 07:30] LABS: HEMATOCRIT 31.1 % (36-54); HEMOGLOBIN 9.9 g/dL (14.0-18.0); LYMPHOCYTES # (AUTO) 1.2 K/uL (1.0-5.5); LYMPHOCYTES % (AUTO) 8.3 % (20.5-51.5); MEAN CORPUSCULAR HEMOGLOBIN 25 pg (27-31); MEAN CORPUSCULAR HGB CONC 32 % (32-36); MEAN CORPUSCULAR VOLUME 77 fL (79.0-98.0); MONOCYTES # (AUTO) 0.8 K/uL (0.0-1.0); MONOCYTES % (AUTO) 5.7 % (1.7-9.3); NEUTROPHILS # (AUTO) 12.4 K/uL (1.8-7.7); PLATELET COUNT (AUTO) 490 K/uL (130-430); RED BLOOD CELL COUNT(AUTO) 4.05 MIL/uL (4.2-6.2); RED CELL DISTRIBUTION WIDTH 14.9 % (9.0-15.0); WHITE BLOOD COUNT (AUTO) 14.4 K/uL (4.8-10.8)
--- NOTE | 2016-06-22 07:47 | NUR ---
AM Rounds: Received pt sitting high-fowlers in bed. No acute signs of distress noted. IV intact to RUE with no redness or swelling noted to site. Breathing treatment in progress and RT at bedside. No SOB noted. , Kuldeep, at bedside. Call light in reach. Pt educated to call light and verbalizes understanding of need to call prior to ambulating. Bed alarm on. Continue to monitor.
[2016-06-22] MEDS: DOCUSATE SODIUM 250 MG CAPSULE PO SCH ×2 (09:37→20:52)
[2016-06-22] MEDS: CLOPIDOGREL BISULFATE 75 MG TABLET PO SCH (09:37)
[2016-06-22] MEDS: CALCIUM 500 MG/TAB PO SCH ×3 (09:37→20:52)
[2016-06-22] MEDS: ASPIRIN 81 MG TABLET(ECOTRIN) PO SCH (09:37)
[2016-06-22] MEDS: BENAZEPRIL HCL 20 MG TABLET (LOTENSIN) PO SCH (09:37)
[2016-06-22] MEDS: METOPROLOL SUCCINATE 50 MG TAB.SR.24H (TOPROL XL) PO SCH (09:38)
[2016-06-22] MEDS: LACTOBACILLUS RHAMNOSUS GG 1 CAP CAPSULE PO SCH ×2 (09:38→20:52)
[2016-06-22] MEDS: amLODIPine BESYLATE 10 MG TABLET PO SCH (09:38)
[2016-06-22] MEDS: CHOLECALCIFEROL (VITAMIN D3) 2,000 UNIT TABLET PO SCH (09:38)
[2016-06-22] MEDS: buPROPion HCL 150 MG TABLET.SA PO SCH (09:38)
--- NOTE | 2016-06-22 09:40 | NUR ---
RN Rounds: AM meds given per MD order. Pt tolerates well at this time. IV intact to LUE with no redness or swelling noted to site. Call light in reach. Pt assisted up to bathroom and back to bed. Pt tolerates well. Bed alarm on. and patient both educated on need to call for assist prior to ambulating. states "We can't wait. I will watch him." Will reinforce need to call for assist throughout the day.
--- NOTE | 2016-06-22 11:26 | NUR ---
Rounds: Pt up and walking with physical therapy. Pt states "7/10 pain" but continues to refuse scheduled pain medication. Encouraged to let me know if her needs pain meds later. at bedside. Continue to monitor.
--- NOTE | 2016-06-22 13:00 | NUR ---
PHYSICAL THERAPY CO-SIGN The Physical Therapy Progress Notes documented by Certified Welding Inspector have been reviewed. Reviewed/Co-Signed by: Sydney Bhatti, PT Documentation Done by: Jef White PTA I concur with the documentation of this AUTOMATION ENGINEERING MANAGER. Patient making good and steady progress with PT. Plan: continue PT as per plan of care. Addendum: 06/22/16 at 1537 by Sydney Bhatti PT Amended: Links added.
--- NOTE | 2016-06-22 13:06 | NUR ---
Rounds: Pt sitting semi-fowlers in bed. No acute signs of distress noted. Patient is playing a game on his ipad at this time. Denies pain. IV intact to RUE. Denies SOB. Call light in reach. Bed alarm on. Bed in lowest positioned. Continue to monitor.
[2016-06-22] MEDS: methylPREDNISolone SOD SUCC/PF 62.5 MG/ML VIAL IVP SCH ×2 (14:01→21:31)
--- NOTE | 2016-06-22 15:34 | NUR ---
Rounds: Pt medicated for chills, pain, and fever. Pt tolerates PO med well. Patient's family at bedside. Call light in reach. Cooling packs placed to axillary region, back of neck. Continue to monitor. Addendum: 06/22/16 at 1540 by Cierra Cedillo RN Wrong patient--please disregard this note.
--- NOTE | 2016-06-22 15:40 | NUR ---
Rounds: Pt sitting up in bed and watching TV. Patient denies pain. LSO brace on at this time. Call light in reach. Continue to monitor.
--- NOTE | 2016-06-22 17:15 | NUR ---
Rounds: Pt sitting up in bed and eating dinner. No acute signs of distress noted. Pt denies SOB. Call light in reach. Continue to monitor.
--- NOTE | 2016-06-22 18:21 | NUR ---
Closing Note: Pt sitting semi-fowlers in bed. No acute signs of distress noted. Pt refuse pain meds at this time. Call light in reach. All needs met at this time. IV intact to RUE. at bedside. Fall precautions in place. Bed alarm on. Endorse plan of care to WILLIAMS RN.
--- NOTE | 2016-06-22 20:00 | NUR ---
Rounds Received patient lying in bed resting and watching TV, denies of any pin, no acute distress noted. IV site checked intact and patent. Instructed patient to call nurse when getting out of bed, call light within reach, bed alarm on.
[2016-06-22] MEDS: AMITRIPTYLINE HCL 25 MG TABLET (ELAVIL) PO SCH (20:52)
[2016-06-22] MEDS: SIMVASTATIN 40 MG TABLET PO SCH (20:53)
[2016-06-22] MEDS: MORPHINE 4 MG/ML INJ. SYRINGE IVP PRN (21:21)
--- NOTE | 2016-06-22 21:45 | NUR ---
IV RE-INSERTION: Complaining of pain to IV site. Restarted on right forearm. Successful after x1 attempts. Will observe for any signs of infiltration.
--- NOTE | 2016-06-22 22:10 | NUR ---
Rounds Patient lying in bed resting and watching TV, pain medication given earlier with effective result noted. call light within reach, bed alarm on.
[2016-06-23] VITALS (8 sets, daily range): BP systolic 150–166; BP diastolic 77–89; PULSE 66–74; RESP 18–20; TEMP 97–98.6; O2SAT 89–98
--- NOTE | 2016-06-23 | NUR ---
Rounds Assisted patient to go to the bathroom and back to bed with back brace on, steady gait noted. call light within reach, bed alarm on.
[2016-06-23] MEDS: HYDROcodone/ACETAMIN 7.5-325 MG TAB PO SCH ×2 (00:20→05:48)
[2016-06-23] MEDS: IPRATROPIUM BROM 0.5 MG/2.5 ML VIAL.NEB (ATROVENT) INH SCH ×3 (02:00→11:28)
[2016-06-23] MEDS: ALBUTEROL SULFATE 0.083% 2.5 MG/3 ML VIAL.NEB INH SCH ×3 (02:00→11:28)
--- NOTE | 2016-06-23 02:01 | NUR ---
Rounds Patient resting quietly, c-pap in place. No s/s of any pain, no acute distress noted. call light within reach, bed alarm on.
--- NOTE | 2016-06-23 04:00 | NUR ---
Rounds Assisted patient to go to the bathroom and back to bed with back brace on, steady gait noted. call light within reach, bed alarm on.
[2016-06-23] MEDS: MORPHINE 4 MG/ML INJ. SYRINGE IVP PRN (05:05)
[2016-06-23] MEDS: methylPREDNISolone SOD SUCC/PF 62.5 MG/ML VIAL IVP SCH (05:47)
--- NOTE | 2016-06-23 06:53 | NUR ---
Closing notes Patient slept most of the night, no other changes noted on patient current condition.
--- NOTE | 2016-06-23 08:00 | NUR ---
initial notes rec patient awake alert with hob slightly elevated, with o2 at 2 liters via oxymizer. no sob noted. resp easy and unlabored.patient with a lso brace, denies pain at this time. bed in low position and side rails up and locked. call light within reached and knows when to call for assistance. at bedside.
--- NOTE | 2016-06-23 09:42 | NUR ---
seen by dr eden and with order for d/c.
[2016-06-23] MEDS: DOCUSATE SODIUM 250 MG CAPSULE PO SCH (09:44)
[2016-06-23] MEDS: buPROPion HCL 150 MG TABLET.SA PO SCH (09:44)
[2016-06-23] MEDS: BENAZEPRIL HCL 20 MG TABLET (LOTENSIN) PO SCH (09:44)
[2016-06-23] MEDS: ASPIRIN 81 MG TABLET(ECOTRIN) PO SCH (09:44)
[2016-06-23] MEDS: CALCIUM 500 MG/TAB PO SCH (09:45)
[2016-06-23] MEDS: METOPROLOL SUCCINATE 50 MG TAB.SR.24H (TOPROL XL) PO SCH (09:45)
[2016-06-23] MEDS ORDERED: PREDNISONE 20 MG TABLET PO ONE (09:45)
[2016-06-23] MEDS: CLOPIDOGREL BISULFATE 75 MG TABLET PO SCH (09:46)
--- NOTE | 2016-06-23 09:51 | NUR ---
Faxed DC order Home to [facility] at [phone] Filed fax confirmation in binder.
[2016-06-23] MEDS: CHOLECALCIFEROL (VITAMIN D3) 2,000 UNIT TABLET PO SCH (09:58)
[2016-06-23] MEDS: amLODIPine BESYLATE 10 MG TABLET PO SCH (09:59)
--- NOTE | 2016-06-23 12:20 | NUR ---
closing notes pt was discharged. instructions given to the . pt is stable, going home with his portable o2 from home. ivl was removed, id was removed and put on the shredder.
--- NOTE | 2016-06-23 15:01 | NUR ---
PHYSICAL THERAPY CO-SIGN The Physical Therapy Progress Notes documented by Automotive Electrician Helper have been reviewed. I CONCUR W/PRE SCHOOL MANAGER NOTE Reviewed/Co-Signed by: Roopa Garay PT Documentation Done by: SANDY PEARL PRE SCHOOL MANAGER Addendum: 06/23/16 at 1502 by Roopa Garay PT Amended: Links added.
[2016-06-24] MEDS ORDERED: PREDNISONE 20 MG TABLET PO SCH (09:00)
--- NOTE | 2016-06-30 12:56 | NUR ---
Discharge Follow Phone Call GRAIN INSPECTOR phoned patient, , and spoke with patient's , Natalie. Natalie stated that patient attended his follow up appointment with his PCP, Dr Araya, today. They filled patient's prescriptions. Patient is still experiencing back pain and was told it would take about six months to heal. Patient's was concerned about housekeeping issues at the hospital which GRAIN INSPECTOR passed on to Kiya in . No further follow up calls requested.
== END 2016-06-23 12:10 | disposition home or self-care (01) | DRG 543 ==
LOC: SED 09:07 → STU 10:55 → OBSVTOIN 06-18 15:55 → SMU 06-21 21:36
PROVIDERS: ADMIT Internal Medicine; ATTEND Internal Medicine
PROC: 5A09457 Assistance with Respiratory Ventilation, 24-96 Consecutive Hours, Continuous Positive Airway Pressure (ICD-10-PCS; principal; 2016-06-18)
DX: M48.56XA Collapsed vertebra, not elsewhere classified, lumbar region, initial encounter for fracture (principal); J44.0 Chronic obstructive pulmonary disease with (acute) lower respiratory infection; J96.11 Chronic respiratory failure with hypoxia; J44.1 Chronic obstructive pulmonary disease with (acute) exacerbation; J20.9 Acute bronchitis, unspecified; I10 Essential (primary) hypertension; E78.5 Hyperlipidemia, unspecified; I65.29 Occlusion and stenosis of unspecified carotid artery; K21.9 Gastro-esophageal reflux disease without esophagitis; M85.80 Other specified disorders of bone density and structure, unspecified site; J45.909 Unspecified asthma, uncomplicated; E11.40 Type 2 diabetes mellitus with diabetic neuropathy, unspecified; Z90.49 Acquired absence of other specified parts of digestive tract; Z79.899 Other long term (current) drug therapy; Z99.81 Dependence on supplemental oxygen; Z80.9 Family history of malignant neoplasm, unspecified
CPT/HCPCS: 36415; 36600; 70450-TC; 70498; 71010; 72100-TC; 72170-TC; 80048; 80053; 82803-TC; 83605; 83735-TC; 83880; 84100-TC; 84484; 85007; 85025; 85027; 87040-TC; 93005; 93306; 93880; 94640; 94760; 96374; 96375; 97110-GP; 97116-GP; 97530-GP; 99285; G0378; J1030; J1815; J1885; J1956; J2270; J2405; J2930; J7512; Q9967

== ENCOUNTER 2018-08-06 13:17 | Inpatient (IN) | payer OTHER ==
[~2018-08-06] VITALS: Ht 175.3 cm; Wt 101.3 kg
[2018-08-06] VITALS (10 sets, daily range): BP systolic 116–144
[~2018-08-06 13:17] MED LIST changes: -ASPI-1063 PO; +ASPI-1154 PO; -BENA40TA2 PO; +BENA40TA8 PO; -HYDR12.5 PO; -LEVE500T13 PO
[2018-08-06] MEDS ORDERED: ALBUTEROL SULFATE 0.083% 2.5 MG/3 ML VIAL.NEB INH ONE (13:30)
[2018-08-06] MEDS ORDERED: LEVOFLOXACIN 500 MG/D5W 100 ML IV ONE ×2 (13:30→14:45)
--- NOTE | 2018-08-06 13:42 | NUR ---
Patient to ER bed 1 to gown for evaluation. Side rails up.
--- NOTE | 2018-08-06 14:05 | NUR ---
Pt arrived to ED, brought by for complaints of a stroke. Pt is complaining of chest pain 10/19 with no neurologic changes. Pt is connected to O2 via NC on 3 L but feels that he cant get enough air. Pt is awake, alert and oriented with at bedside, pt stated that his pain started today.
[2018-08-06 14:10] LABS: BASOPHILS # (AUTO) 0.1 K/uL (0.0-0.2); BASOPHILS % (AUTO) 1.4 % (0.0-2.0); EOSINOPHILS # (AUTO) 0.1 K/uL (0.0-0.4); EOSINOPHILS % (AUTO) 1.5 % (0.0-4.0); HEMOGLOBIN 7.7 g/dL (14.0-18.0); LYMPHOCYTES # (AUTO) 1.6 K/uL (1.0-5.5); LYMPHOCYTES % (AUTO) 16.2 % (20.5-51.5); MEAN CORPUSCULAR HEMOGLOBIN 24 pg (27-31); MEAN CORPUSCULAR HGB CONC 32 % (32-36); MEAN CORPUSCULAR VOLUME 74 fL (79.0-98.0); MONOCYTES # (AUTO) 0.9 K/uL (0.0-1.0); MONOCYTES % (AUTO) 9.5 % (1.7-9.3); NEUTROPHILS # (AUTO) 6.9 K/uL (1.8-7.7); NEUTROPHILS % (AUTO) 71.4 % (40.0-70.0); PLATELET COUNT (AUTO) 339 K/uL (130-430); RED BLOOD CELL COUNT(AUTO) 3.22 MIL/uL (4.2-6.2); RED CELL DISTRIBUTION WIDTH 17.1 % (9.0-15.0); WHITE BLOOD COUNT (AUTO) 9.7 K/uL (4.8-10.8)
[2018-08-06 14:29] LABS: ANION GAP 10 (5-15); CALCIUM 9.8 mg/dL (8.4-11.0); CHLORIDE 96 mmol/L (98-107); CREATININE 1.13 mg/dL (0.55-1.30); POTASSIUM 3.6 mmol/L (3.5-5.1); SODIUM SERUM 135 mmol/L (136-145); UREA NITROGEN, BLOOD 11 mg/dL (8-21)
[2018-08-06 14:31] LABS: PROTHROMBIN TIME 10.4 SECS (9.5-12.5)
[2018-08-06 14:33] LABS: ALANINE AMINOTRANSFERASE 26 U/L (12-78); ALBUMIN 3.5 g/dL (3.4-4.8); ASPARTATE AMINOTRANSFERASE 21 U/L (10-37); TOTAL BILIRUBIN 0.4 mg/dL (0.0-1.0)
[2018-08-06 14:37] LABS: GLUCOSE 403 mg/dL (70-99)
--- NOTE | 2018-08-06 14:39 | NUR ---
Dr. Chauhan at bedside with pt
[2018-08-06] MEDS ORDERED: POTASSIUM CHLORIDE 20 MEQ TAB.PRT.SR PO ONE (14:45)
[2018-08-06] MEDS ORDERED: NORT10CA5 PO (15:13)
[2018-08-06] MEDS ORDERED: GLIP10TA21 PO (15:13)
[2018-08-06] MEDS ORDERED: SENN-104 PO (15:14)
[2018-08-06] MEDS ORDERED: ASPIRIN 81 MG TAB.CHEW PO ONE (15:15)
[2018-08-06] MEDS ORDERED: NACL 0.9% 1,000 ML IV ONE ×2 (15:15→17:45)
[2018-08-06] MEDS ORDERED: ALEN70TA3 PO (15:16)
[2018-08-06] MEDS ORDERED: POTA10TA15 PO (15:20)
[2018-08-06] MEDS ORDERED: FURO-150 PO (15:20)
[2018-08-06] MEDS ORDERED: UMEC1BLS IH (15:20)
[2018-08-06] MEDS ORDERED: CLOP75TA32 PO (15:21)
[2018-08-06] MEDS ORDERED: D5W 1,000 ML IV PRN (15:22)
[2018-08-06] MEDS ORDERED: ACETAMINOPHEN 325 MG TABLET PO PRN (15:30)
[2018-08-06] MEDS ORDERED: GLUCOSE 15 GM GEL (in 37.5 GM TUBE) PO PRN (15:30)
[2018-08-06] MEDS ORDERED: DEXTROSE 50% JECT 50 ML DISP.SYRIN IVP PRN (15:30)
--- NOTE | 2018-08-06 15:30 | NUR ---
Medication reconciliation completed with information provided by family . Any prior medication reconciliation on file was reviewed and corrected.
[2018-08-06] MEDS ORDERED: CALC-7 PO (15:45)
[2018-08-06] MEDS ORDERED: NITROGLYCERIN 250 ML IV PRN ×2 (15:45→16:00)
[2018-08-06] MEDS ORDERED: ENOXAPARIN SODIUM 100 MG/ML SYRINGE SUBCUT ONE (15:45)
[2018-08-06] MEDS ORDERED: DIPHENHYDRAMINE INJ 50 MG/ML VIAL IVP ONE (15:45)
[2018-08-06] MEDS ORDERED: MORPHINE 4 MG/ML INJ. SYRINGE IVP ONE ×2 (15:45→19:00)
[2018-08-06] MEDS ORDERED: L.RH1CAP PO (15:45)
[2018-08-06] MEDS ORDERED: LEVOFLOXACIN 500 MG/D5W 100 ML IV SCH (16:00)
--- NOTE | 2018-08-06 16:09 | NUR ---
DR KELLER AND DR RUIZ HERE TO SEE PT.
[2018-08-06] MEDS ORDERED: *HEPARIN PER PHARMACY XX ONE (16:15)
[2018-08-06] MEDS ORDERED: METOPROLOL TARTRATE 25 MG TABLET PO ONE (16:15)
[2018-08-06 16:20] LABS: BILIRUBIN,URINE NEGATIVE (NEGATIVE); CLARITY/URINE CLEAR (CLEAR); COLOR,URINE YELLOW (YELLOW); GLUCOSE,URINE 3+ (NEGATIVE); KETONES,URINE NEGATIVE (NEGATIVE); LEUKOCYTE ESTERASE ,URINE NEGATIVE (NEGATIVE); NITRITE, URINE NEGATIVE (NEGATIVE); PH,URINE 6.5 (5.0-8.0); PROTEIN URINE NEGATIVE (NEGATIVE); UROBILINOGEN,URINE 0.2 (0.2-1.0)
[2018-08-06 16:21] LABS: BLOOD, URINE TRACE (NEGATIVE)
[2018-08-06 16:45] LABS: BACTERIA,URINE FEW /HPF (None Seen); MUCUS,URINE None Seen /LPF (None Seen); WBC,URINE 0-3 /HPF (0-3)
[2018-08-06] MEDS ORDERED: IOHEXOL 350 mgI/mL, 150 ML INFUS..BTL IV ONE (16:53)
[2018-08-06] MEDS ORDERED: HEPARIN SODIUM,PORCINE 3000 UNITS/0.6 ML BOLUS IVP PRN (17:15)
[2018-08-06] MEDS ORDERED: HEPARIN SODIUM,PORCINE 5000 UNITS/ML VIAL IVP ONE (17:15)
[2018-08-06] MEDS ORDERED: HEPARIN SODIUM,PORCINE 2000 UNITS/0.4 ML BOLUS IVP PRN (17:15)
--- NOTE | 2018-08-06 17:50 | NUR ---
Opening Note Received bedside report from endorsing RN for continuation of care. Received patient awake, alert, oriented x 4. Patient denies any pain. Patient reports feeling SOB. See VSS flowsheet. No signs or symptoms of acute distress. Bed locked in lowest position, bed alarm on, and call light within reach. Safety precautions in place.
--- NOTE | 2018-08-06 17:50 | NUR ---
Patient will be admitted to [facility] covering for Dr. Morrison. Admitted to ICU unit. Will go to room 5. Belongings list completed. Summary report printed. Report will be given at bedside.
[2018-08-06] MEDS: INSULIN REGULAR, HUMAN 100 UNITS/ML, 10 ML VIAL (novoLIN R) SUBCUT PRN ×2 (18:58→21:34)
--- NOTE | 2018-08-06 19:25 | NUR ---
Endorsement Endorsed bedside report to Kenny RN using SBAR approach for continuation of care.
--- NOTE | 2018-08-06 19:30 | NUR ---
PM ASSESSMENT Pt in bed w/ eyes open resting comfortably, family at bedside. Pt A&O x4. VSS w/ SR seen on the monitor. Pt on 4L NC tolerating well w/ even and unlabored breathing and O2 sats @ 94%. Pt has a R Hand 22g saline locked and a R Femoral triple lumen central line which is currently transfusing 1U of PRBC. Pt doesn't verbalize any other needs at this time. Bed is locked and in lowest position, call light w/in reach, will continue to monitor.
[2018-08-06] MEDS: IPRATROPIUM/ALBUTEROL SULFATE 3 ML AMPUL.NEB (DUONEB) INH PRN (19:54)
[2018-08-06] MEDS: HEPARIN 25,000 UNITS in 250 ML PREMIX IV PRN (20:01)
--- NOTE | 2018-08-06 20:13 | NUR ---
HEPARIN DRIP WITNESS PRAVEENA CISNEROS RN START HEPARIN DRIP AT THIS TIME. 4000 UNIT BOLUS GIVEN PRIOR TO INITIATION OF DRIP AND HEPARIN DRIP STARTED AT 1100 UNITS/HR PER ORDERS. WILL CONTINUE TO MONITOR PT. Addendum: 08/06/18 at 2325 by Doris Chua RN PTT 20.4
--- NOTE | 2018-08-06 20:18 | NUR ---
Dr. Rodriguez called and made aware of 's ABG lab values. Orders received, will carry out orders. Addendum: 08/06/18 at 2339 by Kenny Herron RN Note was for 2217.
[2018-08-06] MEDS: MORPHINE 4 MG/ML INJ. SYRINGE IVP PRN (20:25)
[2018-08-06] MEDS ORDERED: ENOXAPARIN SODIUM 100 MG/ML SYRINGE SUBCUT SCH (21:00)
--- NOTE | 2018-08-06 21:10 | NUR ---
Pt desatting to 87%, RT at bedside and tried to titrate NC but no change. Will call MD for oxygen titration orders.
--- NOTE | 2018-08-06 21:16 | NUR ---
called Dr. Rodriguez for a pulmonary consult spoke to Darlin and the 's exchange. Dr. Rodriguez called back at 2119.
--- NOTE | 2018-08-06 21:21 | NUR ---
Dr. Rodriguez called back regarding pt's desaturation and MD made aware. Orders received, will carry out orders.
[2018-08-06] MEDS: PANTOPRAZOLE SODIUM 40 MG/VIAL (PROTONIX) IVP SCH (21:23)
[2018-08-06] MEDS: methylPREDNISolone SOD SUCC/PF 62.5 MG/ML VIAL IVP SCH (21:23)
[2018-08-06] MEDS: METOPROLOL TARTRATE 25 MG TABLET PO SCH (21:24)
--- NOTE | 2018-08-06 21:40 | NUR ---
called Dr. Hidalgo for morning consult and spoke to Darlin at the doctor's exchange
--- NOTE | 2018-08-06 22:15 | NUR ---
Paged Dr. Rodriguez for results of ABG reports. Spoke to Nayeli.
--- NOTE | 2018-08-06 22:20 | NUR ---
Pt's oximizer titrated up to 8L a this time. Pt tolerating well. RT made aware. Will continue to monitor.
[2018-08-06 22:40] LABS: BASOPHILS # (AUTO) 0.2 K/uL (0.0-0.2); BASOPHILS % (AUTO) 1.1 % (0.0-2.0); EOSINOPHILS # (AUTO) 0.1 K/uL (0.0-0.4); EOSINOPHILS % (AUTO) 0.4 % (0.0-4.0)
[2018-08-06 22:52] LABS: HEMATOCRIT 25.2 % (36-54); LYMPHOCYTES % (AUTO) 14.4 % (20.5-51.5); MEAN CORPUSCULAR HEMOGLOBIN 25 pg (27-31); MEAN CORPUSCULAR HGB CONC 32 % (32-36); MEAN CORPUSCULAR VOLUME 77 fL (79.0-98.0); MONOCYTES # (AUTO) 1.8 K/uL (0.0-1.0); NEUTROPHILS % (AUTO) 71.1 % (40.0-70.0); PLATELET COUNT (AUTO) 310 K/uL (130-430); RED BLOOD CELL COUNT(AUTO) 3.27 MIL/uL (4.2-6.2); RED CELL DISTRIBUTION WIDTH 19.3 % (9.0-15.0); WHITE BLOOD COUNT (AUTO) 14.2 K/uL (4.8-10.8)
--- NOTE | 2018-08-06 22:55 | NUR ---
Spoke to Dr. Orta and made MD aware about pt's recent troponin levels of 6.766. No new orders received at this time. Will continue to monitor pt.
--- NOTE | 2018-08-06 23:07 | NUR ---
Received call from Dr. Chauhan about wanting to know about pt's status. Made MD aware of pt's status. No new orders received at this time. Will continue to monitor pt.
[2018-08-07] VITALS (24 sets, daily range): BP systolic 108–145
--- NOTE | 2018-08-07 00:05 | NUR ---
Pt states "I feel a pressure in my chest, I can't breathe right now". Called RT at this time. Will page MD at this time.
--- NOTE | 2018-08-07 00:14 | NUR ---
Called Dr. Rodriguez's exchange and spoke to Katalina.
--- NOTE | 2018-08-07 00:20 | NUR ---
Dr. Rodriguez called back and was made aware of pt's condition. New orders received, will carry out orders.
--- NOTE | 2018-08-07 00:25 | NUR ---
RT placed pt on Bipap /, FIO2 50%, and BUR 14 per MD order. Pt tolerating well and states "I feel better already". Will continue to monitor pt.
[2018-08-07] MEDS: IPRATROPIUM/ALBUTEROL SULFATE 3 ML AMPUL.NEB (DUONEB) INH PRN ×2 (00:42→08:19)
--- NOTE | 2018-08-07 02:56 | NUR ---
HEPARIN DRIP ADJUSTED PER PROTOCOL Witnessed ALESSIA Cox, administer 2,000 units IVP bolus and adjust heparin drip to 1,300 units/hour per protocol for PTT of 38.
--- NOTE | 2018-08-07 04:50 | NUR ---
Pt in bed w/ eyes open watching tv. No signs of acute distress or discomfort noted. Will continue to monitor.
[2018-08-07] MEDS: methylPREDNISolone SOD SUCC/PF 62.5 MG/ML VIAL IVP SCH ×3 (05:34→21:26)
[2018-08-07 05:54] LABS: BASOPHILS # (AUTO) 0.1 K/uL (0.0-0.2); BASOPHILS % (AUTO) 0.8 % (0.0-2.0); HEMATOCRIT 25.1 % (36-54); HEMOGLOBIN 7.7 g/dL (14.0-18.0); LYMPHOCYTES # (AUTO) 0.9 K/uL (1.0-5.5); LYMPHOCYTES % (AUTO) 7.7 % (20.5-51.5); MEAN CORPUSCULAR HEMOGLOBIN 24 pg (27-31); MEAN CORPUSCULAR HGB CONC 31 % (32-36); MEAN CORPUSCULAR VOLUME 77 fL (79.0-98.0); MONOCYTES # (AUTO) 0.2 K/uL (0.0-1.0); MONOCYTES % (AUTO) 1.4 % (1.7-9.3); NEUTROPHILS # (AUTO) 10.9 K/uL (1.8-7.7); NEUTROPHILS % (AUTO) 90.1 % (40.0-70.0); PLATELET COUNT (AUTO) 297 K/uL (130-430); RED BLOOD CELL COUNT(AUTO) 3.27 MIL/uL (4.2-6.2); RED CELL DISTRIBUTION WIDTH 19.6 % (9.0-15.0); WHITE BLOOD COUNT (AUTO) 12.1 K/uL (4.8-10.8)
--- NOTE | 2018-08-07 06:05 | NUR ---
RT took pt off BIPAP at this time. Pt placed on Oximizer 6L. Pt tolerating well, will continue to monitor.
[2018-08-07 06:12] LABS: ANION GAP 9 (5-15); CALCIUM 9.1 mg/dL (8.4-11.0); CHLORIDE 98 mmol/L (98-107); CREATININE 0.88 mg/dL (0.55-1.30); GLUCOSE 279 mg/dL (70-99); POTASSIUM 4.3 mmol/L (3.5-5.1); SODIUM SERUM 136 mmol/L (136-145); UREA NITROGEN, BLOOD 10 mg/dL (8-21)
[2018-08-07] MEDS: INSULIN REGULAR, HUMAN 100 UNITS/ML, 10 ML VIAL (novoLIN R) SUBCUT PRN ×4 (06:20→21:40)
[2018-08-07 06:22] LABS: ALANINE AMINOTRANSFERASE 43 U/L (12-78); ALBUMIN 3.3 g/dL (3.4-4.8); ASPARTATE AMINOTRANSFERASE 82 U/L (10-37); TOTAL BILIRUBIN 0.9 mg/dL (0.0-1.0)
--- NOTE | 2018-08-07 06:31 | NUR ---
called Dr. Chauhan for orders. Spoke to Erendira
--- NOTE | 2018-08-07 07:25 | NUR ---
ENDORSEMENT Report given to Deisy AGGARWAL and pt care was endorsed. Pt in bed w/ eyes open resting comfortably, no signs of acute distress or discomfort noted.
--- NOTE | 2018-08-07 07:35 | NUR ---
AM ASSESSMENT Pt received laying in bed with eyes open. Pt is awake, alert and oriented, and responds to verbal stimuli. Right femoral triple lumen infusing Heparin @ 1300 units / hour. Pt is resting comfortably in bed connected to in room monitor. No signs of distress or complaints of pain. Will continue to monitor.
[2018-08-07] MEDS: MORPHINE 4 MG/ML INJ. SYRINGE IVP PRN ×3 (08:09→17:17)
[2018-08-07] MEDS: PANTOPRAZOLE SODIUM 40 MG/VIAL (PROTONIX) IVP SCH ×2 (08:09→21:25)
[2018-08-07] MEDS ORDERED: MORPHINE 4 MG/ML INJ. SYRINGE IVP PRN (08:30)
[2018-08-07] MEDS ORDERED: FUROSEMIDE 20 MG/2 ML VIAL IVP ONE (09:00)
[2018-08-07] MEDS ORDERED: FUROSEMIDE 20 MG/2 ML VIAL IVP SCH (09:00)
--- NOTE | 2018-08-07 09:10 | NUR ---
New consult paged for Dr. Atkinson Addendum: 08/07/18 at 0919 by Carmen Sevilla RN spoke with exchange
[2018-08-07] MEDS ORDERED: ASPIRIN 325 MG TABLET PO ONE (10:00)
--- NOTE | 2018-08-07 10:24 | NUR ---
Nutrition Update Mohinder Scale 18 noted. Pt admitted for COPD, SOB. Diet: [facility] BMI: 29.4 kg/m2 RD to follow per nutrition care standards.
--- NOTE | 2018-08-07 10:25 | NUR ---
BT INITIATION: Consent signed per pt agreeing to administration of blood. Blood has been type and crossmatched. Blood sent from blood bank. Information on unit of blood checked against patient wristband at bedside by two nurses. All information matches. Patient or responsible republican informed of potential complications associated with blood transfusion. Informed of possible transfusion reaction symptoms. Aware of need to notify nurse at once of itching, shortness of breath, flushing, feeling of impending doom, or other symptoms not previously present. Vital signs taken within 5 minutes prior to initiation of transfusion. RN will remain with patient for first 15 minutes of transfusion at which time vital signs will be re-assessed.
[2018-08-07] MEDS: ALBUTEROL SULFATE 0.083% 2.5 MG/3 ML VIAL.NEB INH PRN (10:46)
[2018-08-07] MEDS: IPRATROPIUM BROM 0.5 MG/2.5 ML VIAL.NEB (ATROVENT) INH PRN (10:47)
--- NOTE | 2018-08-07 10:52 | NUR ---
ECHO Pt receiving bedside ECHO performed by tech in room.
--- NOTE | 2018-08-07 11:06 | NUR ---
Witnessed heparin drip titration to 1400 from 1300. Addendum: 08/07/18 at 1108 by Carmen Sevilla RN Witnessed heparin drip titration from 1300 units/hr to 1400 units/hr.
[2018-08-07] MEDS: METOPROLOL TARTRATE 25 MG TABLET PO SCH ×2 (11:13→21:27)
[2018-08-07] MEDS: PIPERACILLIN/TAZO 3.375/DEX-IS 50 ML IV SCH ×2 (12:31→17:17)
[2018-08-07] MEDS: AZITHROMYCIN 500 MG in NS 250 ML IV SCH (13:13)
[2018-08-07] MEDS: IPRATROPIUM BROM 0.5 MG/2.5 ML VIAL.NEB (ATROVENT) INH SCH ×2 (14:19→19:40)
[2018-08-07] MEDS: ALBUTEROL SULFATE 0.083% 2.5 MG/3 ML VIAL.NEB INH SCH ×2 (14:19→19:40)
[2018-08-07] MEDS: HEPARIN 25,000 UNITS in 250 ML PREMIX IV PRN (14:43)
--- NOTE | 2018-08-07 18:30 | NUR ---
Witnessed insulin drip titration to 1500 units/hr. Addendum: 08/07/18 at 1917 by Carmen Sevilla RN CORRECTION: Witnessed heparin drip titration to 1500 units/hr.
--- NOTE | 2018-08-07 19:30 | NUR ---
PM ASSESSMENT REPORT RECEIVED FROM RIANA AGGARWAL. PT RECEIVED SITTING UP IN BED, AAOX4, AND ABLE TO VERBALIZE NEEDS. VSS, NO S/S OF ACUTE DISTRESS NOTED. PT ON 6L OXIMIZER. SR ON MONITOR. R HAND 22G TO SL, R FEMORAL TLC INFUSING NITRO DRIP @ 30 MCG/MIN AND HEPARIN DRIP @ 1500 UNITS/HR. PT STATES 7/10 "CHEST PRESSURE", PT STATES IT IS TOLERABLE AND HE WOULD NOT LIKE ANY ADDITIONAL PAIN MEDICATION AT THIS TIME. HOB ELEVATED, BED IN LOWEST POSITION, CALL LIGHT IN REACH. WILL CONTINUE TO MONITOR PT.
--- NOTE | 2018-08-07 20:10 | NUR ---
BIPAP PT PLACED ON BIPAP PER REQUEST. SETTINGS: 03/16, FIO2 50%, BUR 14. WILL CONTINUE TO MONITOR PT.
[2018-08-07] MEDS: FUROSEMIDE 20 MG/2 ML VIAL IVP SCH (21:26)
--- NOTE | 2018-08-07 23:45 | NUR ---
DR. ARIANNA CHAMPION CALLED FOR PT UPDATE. NO NEW ORDERS RECEIVED AT THIS TIME. WILL CONTINUE TO MONITOR PT.
[2018-08-08] VITALS (24 sets, daily range): BP systolic 91–152
[2018-08-08] MEDS: PIPERACILLIN/TAZO 3.375/DEX-IS 50 ML IV SCH ×5 (00:05→23:51)
[2018-08-08] MEDS: IPRATROPIUM BROM 0.5 MG/2.5 ML VIAL.NEB (ATROVENT) INH SCH ×4 (00:55→19:31)
[2018-08-08] MEDS: ALBUTEROL SULFATE 0.083% 2.5 MG/3 ML VIAL.NEB INH SCH ×4 (00:55→19:31)
--- NOTE | 2018-08-08 01:00 | NUR ---
PTT PTT 56.8, NO ACTION NEEDED PER PROTOCOL. WILL CONTINUE DAILY PTT MONITORING.
[2018-08-08 05:58] LABS: BASOPHILS % (AUTO) 0.1 % (0.0-2.0); HEMATOCRIT 27.3 % (36-54); HEMOGLOBIN 8.4 g/dL (14.0-18.0); LYMPHOCYTES # (AUTO) 0.9 K/uL (1.0-5.5); LYMPHOCYTES % (AUTO) 5.1 % (20.5-51.5); MEAN CORPUSCULAR HEMOGLOBIN 24 pg (27-31); MEAN CORPUSCULAR HGB CONC 31 % (32-36); MEAN CORPUSCULAR VOLUME 77 fL (79.0-98.0); MONOCYTES # (AUTO) 1.1 K/uL (0.0-1.0); MONOCYTES % (AUTO) 6.2 % (1.7-9.3); NEUTROPHILS # (AUTO) 16.2 K/uL (1.8-7.7); NEUTROPHILS % (AUTO) 88.6 % (40.0-70.0); PLATELET COUNT (AUTO) 299 K/uL (130-430); RED BLOOD CELL COUNT(AUTO) 3.53 MIL/uL (4.2-6.2); RED CELL DISTRIBUTION WIDTH 19.4 % (9.0-15.0); WHITE BLOOD COUNT (AUTO) 18.3 K/uL (4.8-10.8)
[2018-08-08 06:13] LABS: ANION GAP 9 (5-15); CALCIUM 8.7 mg/dL (8.4-11.0); CHLORIDE 98 mmol/L (98-107); CREATININE 1.01 mg/dL (0.55-1.30); GLUCOSE 234 mg/dL (70-99); POTASSIUM 4.1 mmol/L (3.5-5.1); SODIUM SERUM 137 mmol/L (136-145); UREA NITROGEN, BLOOD 17 mg/dL (8-21)
[2018-08-08] MEDS: methylPREDNISolone SOD SUCC/PF 62.5 MG/ML VIAL IVP SCH ×3 (06:19→21:08)
[2018-08-08 06:21] LABS: TOTAL IRON BIND. CAPACITY 358 ug/dL (250-450)
[2018-08-08 06:22] LABS: ALANINE AMINOTRANSFERASE 57 U/L (12-78); ALBUMIN 3.3 g/dL (3.4-4.8); ASPARTATE AMINOTRANSFERASE 75 U/L (10-37); TOTAL BILIRUBIN 0.5 mg/dL (0.0-1.0)
[2018-08-08] MEDS: INSULIN REGULAR, HUMAN 100 UNITS/ML, 10 ML VIAL (novoLIN R) SUBCUT PRN ×4 (06:22→20:50)
--- NOTE | 2018-08-08 07:23 | NUR ---
HEPARIN DRIP TITRATION PTT 48.8. WITNESSED MADISON AGGARWAL TITRATE DRIP TO 1600 UNITS/HR PER PROTOCOL. PTT WILL BE REDRAWN IN 6 HOURS.
--- NOTE | 2018-08-08 07:24 | NUR ---
ENDORSEMENT BEDSIDE REPORT GIVEN TO MADISON AGGARWAL USING SBAR APPROACH.
--- NOTE | 2018-08-08 07:30 | NUR ---
AM ASSESSMENT PATIENT SITTING UP IN BED, ASSESSED FOR BODY DISCOMFORTS, PT DENIES ANY, ON HEPARIN DRIP AT 1600 UNITS PER HR, NITROGLYCERIN DRIP AT 30 MCG/MIN, COUNTER INTELLIGENCE AGENT ON SINUS RHYTHM, SINUS TACH WHEN COUGHING AND TURNING, EDEMA TO LEGS NOTED, ENCOURAGED TO BRING HIS LEGS UP ON PILLOWS WHEN HE DESIRES TO GET IN BED.
[2018-08-08 08:21] LABS: RETICULOCYTE COUNT 3.7 % (0.5-1.5)
[2018-08-08 08:28] LABS: C-REACTIVE PROTEIN QUANT < 0.2 mg/dL (0-0.5); CHOLESTEROL 133 mg/dL (<200); HDL CHOLESTEROL 45 mg/dL (>45); LACTATE DEHYDROGENASE 403 U/L (85-227); LDL CHOLESTEROL 73 mg/dL (<100); TRIGLYCERIDES 91 mg/dL (30-150)
[2018-08-08] MEDS ORDERED: DIATR MEGLU/DIATRIZ SOD 30 ML SOLUTION PO ONE (08:30)
--- NOTE | 2018-08-08 08:30 | NUR ---
. DR CAMPOS HERE AND WENT TO SEE PT. ORAL CONTRAST BROUGHT INTO ROOM BY RADIOLOGY STAFF, PATIENT FOR CT SCAN OF THE ABDOMEN, DR. CAMPOS ORDERED TO HOLD THE TEST FOR NOW.
[2018-08-08] MEDS ORDERED: NITROGLYCERIN 0.4 MG/HR PATCH.TD24 TD ONE (08:45)
[2018-08-08] MEDS: ASPIRIN 325 MG TABLET PO SCH (08:55)
[2018-08-08] MEDS: ATORVASTATIN 20 MG TABLET PO SCH (08:55)
[2018-08-08] MEDS: FUROSEMIDE 20 MG/2 ML VIAL IVP SCH ×2 (08:56→20:56)
[2018-08-08] MEDS: PANTOPRAZOLE SODIUM 40 MG/VIAL (PROTONIX) IVP SCH ×2 (08:57→20:56)
[2018-08-08] MEDS: NITROGLYCERIN 0.4 MG/HR PATCH.TD24 TD SCH (08:57)
--- NOTE | 2018-08-08 09:00 | NUR ---
IV DRIPS. NITROGLYCERIN DRIP TAPERED DOWN TO 20 MCG/MIN.
[2018-08-08] MEDS: HEPARIN 25,000 UNITS in 250 ML PREMIX IV PRN ×2 (09:08→23:50)
--- NOTE | 2018-08-08 10:00 | NUR ---
DRIPS. NITROGLYCERIN DRIP TURNED DOWN TO 10 MCG/MIN.
--- NOTE | 2018-08-08 10:40 | NUR ---
TEST. CALLED UP DR KAYE TO GET ADVICE PER DR CAMPOS IF PATIENT MAY GO FOR THE CT SCAN, QUALITY ASSURANCE SPECIALIST OKAYED IT.
--- NOTE | 2018-08-08 11:00 | NUR ---
IV DRIPS. NITROGLYCERIN DRIP OFF, CONTINUE TO MONITOR PATIENT, NO COMPLAINTS OF DISCOMFORTS.
[2018-08-08] MEDS: AZITHROMYCIN 500 MG in NS 250 ML IV SCH (11:08)
[2018-08-08] MEDS: METOPROLOL TARTRATE 25 MG TABLET PO SCH ×2 (11:09→21:07)
[2018-08-08] MEDS ORDERED: IOHEXOL 100 ML IV ONE (13:17)
--- NOTE | 2018-08-08 13:30 | NUR ---
TO CT SCAN DEPT. TRANSPORTED PATIENT VIA PORTABLE FITTING ROOM SUPERVISOR, AND O2 VIA OXYMIZER. HEPARIN CONTINUOUS AT 1600 UNITS PER HR.
--- NOTE | 2018-08-08 13:45 | NUR ---
TO ICU. BROUGHT PATIENT BACK TO ROOM 5.
--- NOTE | 2018-08-08 16:34 | NUR ---
NURSING. PT TO BE TRANSFERRED TO TELEMETRY DEPT., PATIENT AND HIS MADE AWARE.
--- NOTE | 2018-08-08 19:00 | NUR ---
REPORT. GIVEN TO ONCOMING TELEMETRY NURSE.
--- NOTE | 2018-08-08 19:30 | NUR ---
NURSING. PT ALERT, FAMILY IN THE ROOM, PT DENIES BODY DISCOMFORTS, PT ASSISTED TO SIT UP AT THE EDGE OF THE BED, THEN HE GOT ONTO A WHEELCHAIR, WITH USE OF O2 AND PORTABLE REGIONAL ECONOMIST, PATIENT STARTED RUBBING HIS CHEST, GRIMACING, COMPLAINING OF CHEST DISCOMFORT, HELPED PATIENT GET BACK IN BED, HE ASKED FOR A NEBULIZER TREATMENT, R.T. CAME IN AND RENDERED A TREATMENT. MORPHINE IVP WAS GIVEN BY CHARGE NURSE.
[2018-08-08] MEDS: MORPHINE 4 MG/ML INJ. SYRINGE IVP PRN (19:32)
--- NOTE | 2018-08-08 19:32 | NUR ---
pm shift assessment, was assisting the RN to transfer pt to [facility] ,pt got very sob and started c/o severe chest pain . got pt back in bed and medicated with Morphine 2mg ivp as per order. pt very anxious. RT at bedside giving breathing treatment .
--- NOTE | 2018-08-08 19:45 | NUR ---
notified with pts chest pain and sob. order received to DC transfer order and keep pt in ICU. .Nursing sup notified . orders carried out.
--- NOTE | 2018-08-08 20:02 | NUR ---
pain, pt much calmer and chest pain is down to scale of 3. Monitor shows ST with PACs.
--- NOTE | 2018-08-08 21:10 | NUR ---
Pt requesting to be on the BIPAP., all the routine pm meds given. RT here placed pt on the BIPAP.setting of BIPAP 12/5.rate 14, Fio2 50%.
--- NOTE | 2018-08-08 23:30 | NUR ---
voided, dangled feet at side of bed. voided. back in bed and made him comfortable.
[2018-08-09] VITALS (22 sets, daily range): BP systolic 102–139
--- NOTE | 2018-08-09 | NUR ---
sleeping . no distress noted.
[2018-08-09] MEDS: IPRATROPIUM BROM 0.5 MG/2.5 ML VIAL.NEB (ATROVENT) INH SCH ×4 (00:50→19:26)
[2018-08-09] MEDS: ALBUTEROL SULFATE 0.083% 2.5 MG/3 ML VIAL.NEB INH SCH ×4 (00:50→19:26)
--- NOTE | 2018-08-09 05:00 | NUR ---
AWAKE. SLEPT WELL. PT STATED " FIRST TIME SLEPT WELL". NO DISTRESS NOTED.
[2018-08-09] MEDS: methylPREDNISolone SOD SUCC/PF 62.5 MG/ML VIAL IVP SCH ×3 (05:40→22:08)
[2018-08-09] MEDS: PIPERACILLIN/TAZO 3.375/DEX-IS 50 ML IV SCH ×4 (05:41→23:10)
[2018-08-09 06:48] LABS: BASOPHILS % (AUTO) 0.1 % (0.0-2.0); HEMOGLOBIN 8.2 g/dL (14.0-18.0); LYMPHOCYTES # (AUTO) 0.7 K/uL (1.0-5.5); LYMPHOCYTES % (AUTO) 4.9 % (20.5-51.5); MEAN CORPUSCULAR HEMOGLOBIN 25 pg (27-31); MEAN CORPUSCULAR HGB CONC 32 % (32-36); MEAN CORPUSCULAR VOLUME 78 fL (79.0-98.0); MONOCYTES # (AUTO) 0.7 K/uL (0.0-1.0); MONOCYTES % (AUTO) 5.1 % (1.7-9.3); NEUTROPHILS % (AUTO) 89.9 % (40.0-70.0); PLATELET COUNT (AUTO) 302 K/uL (130-430); RED BLOOD CELL COUNT(AUTO) 3.34 MIL/uL (4.2-6.2); RED CELL DISTRIBUTION WIDTH 19.8 % (9.0-15.0); WHITE BLOOD COUNT (AUTO) 14.4 K/uL (4.8-10.8)
[2018-08-09 06:58] LABS: ANION GAP 9 (5-15); CHLORIDE 98 mmol/L (98-107); CREATININE 1.16 mg/dL (0.55-1.30); GLUCOSE 283 mg/dL (70-99); POTASSIUM 3.4 mmol/L (3.5-5.1); SODIUM SERUM 137 mmol/L (136-145); UREA NITROGEN, BLOOD 26 mg/dL (8-21)
--- NOTE | 2018-08-09 07:00 | NUR ---
REPORT GIVEN TO ON COMING RN.
[2018-08-09] MEDS: INSULIN REGULAR, HUMAN 100 UNITS/ML, 10 ML VIAL (novoLIN R) SUBCUT PRN ×4 (07:06→22:31)
[2018-08-09 07:07] LABS: ALANINE AMINOTRANSFERASE 44 U/L (12-78); ALBUMIN 3.1 g/dL (3.4-4.8); ASPARTATE AMINOTRANSFERASE 31 U/L (10-37); TOTAL BILIRUBIN 0.3 mg/dL (0.0-1.0)
--- NOTE | 2018-08-09 07:20 | NUR ---
AM Assessment Pt received laying in bed with eyes open. Pt is responsive to verbal stimuli with no complaints of pain at this time. Right Fem. central line infusing Heparin @ 1600 units/hr. Pt is connected to 5 L oximizer with oxygen saturation of 95% on in room monitor. No complaints of acute distress at this time. Pt reoriented to call light with bed in lowest position.
--- NOTE | 2018-08-09 07:24 | NUR ---
PRAVEENA MAYERS RN DECREASED HEPARIN DRIP FROM 1600 UNITS TO 1500 UNITS.
--- NOTE | 2018-08-09 07:35 | NUR ---
MD Dr. Hidalgo at bedside with pt.
--- NOTE | 2018-08-09 07:37 | NUR ---
Discontinue Heparin Drip Discontinue Heparin Drip per Dr. Hidalgo.
--- NOTE | 2018-08-09 08:00 | NUR ---
Oxygen Pt changed from Oximizer to 3L via NC, pt tolerating well. Will continue to monitor closely.
[2018-08-09] MEDS: FUROSEMIDE 20 MG/2 ML VIAL IVP SCH ×2 (09:19→22:10)
[2018-08-09] MEDS: PANTOPRAZOLE SODIUM 40 MG/VIAL (PROTONIX) IVP SCH ×2 (09:19→22:08)
[2018-08-09] MEDS: ASPIRIN 325 MG TABLET PO SCH (09:19)
[2018-08-09] MEDS: ATORVASTATIN 20 MG TABLET PO SCH (09:19)
[2018-08-09] MEDS: METOPROLOL TARTRATE 25 MG TABLET PO SCH ×2 (09:20→22:09)
[2018-08-09] MEDS: NITROGLYCERIN 0.4 MG/HR PATCH.TD24 TD SCH (09:21)
--- NOTE | 2018-08-09 09:21 | NUR ---
Nitro Patch Nitro patch placed to pts right upper chest.
[2018-08-09] MEDS: ENOXAPARIN SODIUM 80 MG/0.8 ML SYRINGE SUBCUT SCH ×2 (09:22→22:40)
[2018-08-09] MEDS: AZITHROMYCIN 500 MG in NS 250 ML IV SCH (11:34)
[2018-08-09] MEDS: ALBUTEROL SULFATE 0.083% 2.5 MG/3 ML VIAL.NEB INH PRN (17:10)
[2018-08-09] MEDS: IPRATROPIUM BROM 0.5 MG/2.5 ML VIAL.NEB (ATROVENT) INH PRN (17:10)
--- NOTE | 2018-08-09 17:15 | NUR ---
Bowel Movement Pt had bowel movement using bedside commode. Pt tolerated well.
--- NOTE | 2018-08-09 17:31 | NUR ---
PATIENT RESTING: Patient resting quietly. No acute distress noted. Vital signs within normal range.
--- NOTE | 2018-08-09 18:23 | NUR ---
Transferred Pt transferred to TELE room 130 bed A. Pt endorsed to Jasmyne AGGARWAL using SBAR.
--- NOTE | 2018-08-09 18:45 | NUR ---
INITIAL NOTE patient received resting in bed, patient is A&O x4, breathing is even and unlabored on 3L nasal cannula, patient states he is having pain in his chest from the move, will medicate patient, educated patient on plan of care and call light system, patient denies any acute distress, will continue to monitor, safety precautions in place, call light within reach.
[2018-08-09] MEDS: MORPHINE 4 MG/ML INJ. SYRINGE IVP PRN (18:51)
--- NOTE | 2018-08-09 20:10 | NUR ---
Opening notes Pt AAOx4, VSS, afebrile, pt states pain is better now. Pt placed on Bipap per RT. IV right femoral central line good blood return. Seizure precaution in place. Bed low, locked, alarm on. Call light/items within reach. To monitor.
--- NOTE | 2018-08-09 22:12 | NUR ---
Blood sugar Blood sugar checked 335, 8 units of Regular insulin administered per protocol. Educated pt on s/s of low sugar, pt verb understanding. Call light within reach. To monitor.
[2018-08-10] VITALS (7 sets, daily range): BP systolic 104–148
[2018-08-10] MEDS: IPRATROPIUM BROM 0.5 MG/2.5 ML VIAL.NEB (ATROVENT) INH SCH ×4 (00:50→18:26)
[2018-08-10] MEDS: ALBUTEROL SULFATE 0.083% 2.5 MG/3 ML VIAL.NEB INH SCH ×4 (00:51→18:26)
--- NOTE | 2018-08-10 02:35 | NUR ---
Rounds Pt asleep, no s/s distress noted. Call light within reach. Safety measures in place. To monitor.
--- NOTE | 2018-08-10 04:20 | NUR ---
RT paged for txmt Pt awake sitting up in bed. Bipap tube came loose. RT at bedside for txmt. Will continue to monitor.
--- NOTE | 2018-08-10 05:20 | NUR ---
EKG at bedside
--- NOTE | 2018-08-10 06:13 | NUR ---
Chest Xray at bedside.
[2018-08-10] MEDS: methylPREDNISolone SOD SUCC/PF 62.5 MG/ML VIAL IVP SCH ×3 (06:16→22:47)
[2018-08-10] MEDS: PIPERACILLIN/TAZO 3.375/DEX-IS 50 ML IV SCH ×4 (06:17→23:26)
[2018-08-10] MEDS: INSULIN REGULAR, HUMAN 100 UNITS/ML, 10 ML VIAL (novoLIN R) SUBCUT PRN ×4 (06:30→22:57)
--- NOTE | 2018-08-10 06:30 | NUR ---
Closing notes Pt AAOx4, no s/s distress. BS checked 297, 8 units Reg insulin given. R. femoral central line dressing C/d/I. Call light/urinal within reach. Safety measures in place. To endorse to AM nurse.
[2018-08-10 06:51] LABS: BASOPHILS % (AUTO) 0.1 % (0.0-2.0); HEMATOCRIT 25.1 % (36-54); HEMOGLOBIN 7.9 g/dL (14.0-18.0); LYMPHOCYTES # (AUTO) 0.6 K/uL (1.0-5.5); LYMPHOCYTES % (AUTO) 5.4 % (20.5-51.5); MEAN CORPUSCULAR HEMOGLOBIN 25 pg (27-31); MEAN CORPUSCULAR HGB CONC 31 % (32-36); MEAN CORPUSCULAR VOLUME 79 fL (79.0-98.0); MONOCYTES # (AUTO) 0.7 K/uL (0.0-1.0); MONOCYTES % (AUTO) 6.4 % (1.7-9.3); NEUTROPHILS # (AUTO) 9.4 K/uL (1.8-7.7); NEUTROPHILS % (AUTO) 88.1 % (40.0-70.0); PLATELET COUNT (AUTO) 279 K/uL (130-430); RED BLOOD CELL COUNT(AUTO) 3.19 MIL/uL (4.2-6.2); RED CELL DISTRIBUTION WIDTH 20.3 % (9.0-15.0); WHITE BLOOD COUNT (AUTO) 10.7 K/uL (4.8-10.8)
[2018-08-10 06:58] LABS: ANION GAP 9 (5-15); CALCIUM 8.2 mg/dL (8.4-11.0); CHLORIDE 101 mmol/L (98-107); CREATININE 1.19 mg/dL (0.55-1.30); GLUCOSE 296 mg/dL (70-99); POTASSIUM 3.5 mmol/L (3.5-5.1); SODIUM SERUM 141 mmol/L (136-145); UREA NITROGEN, BLOOD 30 mg/dL (8-21)
[2018-08-10 07:07] LABS: ALANINE AMINOTRANSFERASE 48 U/L (12-78); ALBUMIN 3.2 g/dL (3.4-4.8); ASPARTATE AMINOTRANSFERASE 29 U/L (10-37); TOTAL BILIRUBIN 0.3 mg/dL (0.0-1.0)
--- NOTE | 2018-08-10 07:46 | NUR ---
Initial note: PAtient is alert, oriented x4, states having mid chest pain 3/10, but feeling much better. He is on Oxygen 3L/M via NC, no sign of SOB, just got out from BiPAP from night time. He has right Femoral Central line with clear intact dressing. Will continue monitor.
--- NOTE | 2018-08-10 07:50 | NUR ---
Hemato round: Dr. Campos makes round but has no new order.
[2018-08-10] MEDS: ASPIRIN 325 MG TABLET PO SCH (08:04)
[2018-08-10] MEDS: ATORVASTATIN 20 MG TABLET PO SCH (08:05)
[2018-08-10] MEDS: NITROGLYCERIN 0.4 MG/HR PATCH.TD24 TD SCH (08:05)
[2018-08-10] MEDS: ENOXAPARIN SODIUM 80 MG/0.8 ML SYRINGE SUBCUT SCH ×2 (08:06→22:52)
[2018-08-10] MEDS: FUROSEMIDE 20 MG/2 ML VIAL IVP SCH ×2 (08:08→22:49)
[2018-08-10] MEDS: PANTOPRAZOLE SODIUM 40 MG/VIAL (PROTONIX) IVP SCH ×2 (08:08→22:47)
[2018-08-10] MEDS: MORPHINE 4 MG/ML INJ. SYRINGE IVP PRN (08:50)
--- NOTE | 2018-08-10 08:56 | NUR ---
Chest pain: Patient is complaining mid chest pain 7/10 burning pain, XU=947/104, QE=599, Sat O2=95% with Oxygen 3 L/M via NC. Give Morphine 2 mg IVP PRN for severe pain. Will continue monitor.
--- NOTE | 2018-08-10 09:49 | NUR ---
CALLED PAGEJessica HAINES SPOKE WITH GORDON
[2018-08-10] MEDS: METOPROLOL TARTRATE 25 MG TABLET PO SCH ×2 (10:14→22:48)
[2018-08-10] MEDS ORDERED: MORPHINE 4 MG/ML INJ. SYRINGE IVP ONE (10:15)
--- NOTE | 2018-08-10 10:15 | NUR ---
Chest pain still: Patient states his chest pain is still 7/10 after 45 min pain med given. WX=595/82, GG=333, Sat O2 =95%. Dr. Hidalgo is paged, and Dr. Morrison is in the unit. Inform him about the condition.Then he has ordered to give 2 mg of Morphine IVP extra dose now , do stat EKG and stat Troponin. Will monitor closer.
[2018-08-10] MEDS ORDERED: MORPHINE 2 MG/ML INJ. SYRINGE ONE (10:17)
[2018-08-10] MEDS: AZITHROMYCIN 500 MG in NS 250 ML IV SCH (10:30)
--- NOTE | 2018-08-10 11:14 | NUR ---
RN round: Patient is resting on bed with family at bedside. He states felling better after 2nd pain medication and BiPAP . Now he request to remove BiPAP , put Oxygen 3 L/M via NC back for him. Will continue monitor.
--- NOTE | 2018-08-10 13:19 | NUR ---
Dietitian Recommendations * Recommend CCHO, cardiac diet w/ Glucerna BID (ONS provides an additional 440 kcal/day and 20 gm protein/day) LP, RD Please refer to Nutrition Assessment for details.
--- NOTE | 2018-08-10 13:46 | NUR ---
RN round: Patient is resting on bed with his bedside, seems comfortable with Oxygen 3 L/M via NC, denies any pain or discomfort.
--- NOTE | 2018-08-10 17:36 | NUR ---
RN round: Patient is sitting at the edge of the bed look comfortable ,talking to the and a friend, no sign of distress.
--- NOTE | 2018-08-10 18:33 | NUR ---
Closing note: Patient is stable, on Oxygen 3 L/M via NC, no sign of distress, tolerating diet well, able to walks to the bathroom with assist.
--- NOTE | 2018-08-10 19:30 | NUR ---
OPENING NOTE Late entry d/t patient care. Received patient resting supine in bed, non labored breathing on 3L NC, presently denies pain. Has Rt femoral central line. Bed is locked to lowest position, seizure pads, side bed rails up 3x, bed alarm on, and instructed on use of call light. is visiting at bedside. Updated board and reviewed plan of care.
[2018-08-11] MEDS: ALBUTEROL SULFATE 0.083% 2.5 MG/3 ML VIAL.NEB INH SCH ×3 (01:31→19:02)
[2018-08-11] MEDS: IPRATROPIUM BROM 0.5 MG/2.5 ML VIAL.NEB (ATROVENT) INH SCH ×3 (01:31→19:02)
--- NOTE | 2018-08-11 02:10 | NUR ---
NOTES Patient is sleeping, turned onto his right side. Non labored breathing noted. Will monitor.
--- NOTE | 2018-08-11 04:33 | NUR ---
NOTES Patient is sleeping, turned on his left side. Non labored breathing, on BIPAP. Safety and seizure precautions in place, and call light is near.
--- NOTE | 2018-08-11 05:45 | NUR ---
BIPAP removed Patient is sitting at bedside with feet dangling. BIPAP has been removed by RT and he is on 3L NC. Presently denies chest pain.
[2018-08-11] MEDS: PIPERACILLIN/TAZO 3.375/DEX-IS 50 ML IV SCH ×4 (05:48→23:32)
[2018-08-11] MEDS: methylPREDNISolone SOD SUCC/PF 62.5 MG/ML VIAL IVP SCH ×3 (05:48→18:20)
[2018-08-11] MEDS: INSULIN REGULAR, HUMAN 100 UNITS/ML, 10 ML VIAL (novoLIN R) SUBCUT PRN ×4 (06:01→21:02)
--- NOTE | 2018-08-11 06:45 | NUR ---
CLOSING NOTE Patient was given due medications. We ambulated to the restroom for a bowel movement and he was assisted with the portable tank. He was provided with new bed linen. He returned to bed and was weighed. Needs met throughout shift, seizure and safety precautions in place. Will endorse care to day shift nurse.
[2018-08-11 06:57] LABS: BASOPHILS % (AUTO) 0.2 % (0.0-2.0); HEMATOCRIT 29.9 % (36-54); HEMOGLOBIN 9.1 g/dL (14.0-18.0); LYMPHOCYTES # (AUTO) 0.8 K/uL (1.0-5.5); LYMPHOCYTES % (AUTO) 7.4 % (20.5-51.5); MEAN CORPUSCULAR HEMOGLOBIN 24 pg (27-31); MEAN CORPUSCULAR HGB CONC 31 % (32-36); MEAN CORPUSCULAR VOLUME 79 fL (79.0-98.0); MONOCYTES # (AUTO) 0.9 K/uL (0.0-1.0); MONOCYTES % (AUTO) 7.7 % (1.7-9.3); NEUTROPHILS # (AUTO) 9.5 K/uL (1.8-7.7); NEUTROPHILS % (AUTO) 84.7 % (40.0-70.0); PLATELET COUNT (AUTO) 323 K/uL (130-430); RED BLOOD CELL COUNT(AUTO) 3.79 MIL/uL (4.2-6.2); RED CELL DISTRIBUTION WIDTH 20.6 % (9.0-15.0); WHITE BLOOD COUNT (AUTO) 11.2 K/uL (4.8-10.8)
[2018-08-11 07:33] LABS: ALANINE AMINOTRANSFERASE 57 U/L (12-78); ALBUMIN 3.4 g/dL (3.4-4.8); ANION GAP 3 (5-15); ASPARTATE AMINOTRANSFERASE 29 U/L (10-37); CALCIUM 8.5 mg/dL (8.4-11.0); CHLORIDE 101 mmol/L (98-107); CREATININE 1.19 mg/dL (0.55-1.30); GLUCOSE 276 mg/dL (70-99); POTASSIUM 3.3 mmol/L (3.5-5.1); SODIUM SERUM 138 mmol/L (136-145); TOTAL BILIRUBIN 0.6 mg/dL (0.0-1.0); UREA NITROGEN, BLOOD 22 mg/dL (8-21)
--- NOTE | 2018-08-11 07:45 | NUR ---
OPENING NOTE: RECEIVED REPORT FROM NIGHT NURSE. PATIENT IS RESTING COMFORTABLY IN BED. NO S/S OF DISTRESS OR SOB. PATIENT IS ALERT AND ORIENTED, ABLE TO EXPRESS NEEDS, AND ASK FOR ASSISTANCE. PATIENT ON 3 L NASAL CANNULA. CALL LIGHT IN REACH, BED IN LOWEST POSITION, AND WILL CONTINUE TO MONITOR.
[2018-08-11 08:00] VITALS: BP_SYST 116
[2018-08-11] MEDS: FUROSEMIDE 20 MG/2 ML VIAL IVP SCH ×2 (09:28→20:40)
[2018-08-11] MEDS: PANTOPRAZOLE SODIUM 40 MG/VIAL (PROTONIX) IVP SCH ×2 (09:28→20:23)
[2018-08-11] MEDS: ATORVASTATIN 20 MG TABLET PO SCH (09:29)
[2018-08-11] MEDS: NITROGLYCERIN 0.4 MG/HR PATCH.TD24 TD SCH (09:29)
[2018-08-11] MEDS: ASPIRIN 325 MG TABLET PO SCH (09:29)
[2018-08-11] MEDS: METOPROLOL TARTRATE 25 MG TABLET PO SCH ×2 (09:30→20:24)
[2018-08-11] MEDS: ENOXAPARIN SODIUM 80 MG/0.8 ML SYRINGE SUBCUT SCH ×2 (09:31→20:42)
[2018-08-11] MEDS: AZITHROMYCIN 500 MG in NS 250 ML IV SCH (11:17)
--- NOTE | 2018-08-11 12:00 | NUR ---
RN ROUNDS PATIENT IS RESTING COMFORTABLY IN BED. NO S/S OF DISTRESS OR SOB. PATIENT IS ALERT AND ORIENTED. NO NEEDS EXPRESSED AT THIS TIME. CALL LIGHT IN REACH, BED IN LOWEST POSITION, AND WILL CONTINUE TO MONITOR.
[2018-08-11 12:45] VITALS: BP_SYST 109
--- NOTE | 2018-08-11 16:19 | NUR ---
ROUNDS PT STABLE NOT IN ACUTE DISTRESS. DENIES ANY PAIN OR ORTHER DISCOMFORT. SITTING IN CHAIR. CALL LIGHT WITHIN REACH . WILL CONTINUE TO MONITOR
[2018-08-11 16:50] VITALS: BP_SYST 127
--- NOTE | 2018-08-11 18:36 | NUR ---
Paged Dr. Hidalgo, Dr. Chauhan adapted physical education teacher s/w Nayeli.
--- NOTE | 2018-08-11 18:36 | NUR ---
ELEVATED HEART RATE PATIENT HAS BEEN SUSTAINING ELEVATED HEART RATE OF BETWEEN 150-160 FOR SEVERAL MINUTES. TACKER ELASTIC BAND PAGED TO REPORT.
--- NOTE | 2018-08-11 18:45 | NUR ---
DR. RUIZ CALLED UPDATED ON PATIENT CHANGE OF CONDITION. NO ORDERS GIVEN. MD TO COME AND SEE PATIENT.
--- NOTE | 2018-08-11 18:50 | NUR ---
CHANGE OF CONDITION. PATIENT IS COMPLAINING OF CHEST PAIN, SHORTNESS OF BREATH. RT IN ROOM, PUTTING PATIENT ON BIPAP. MORPHINE TO BE GIVEN.
[2018-08-11] MEDS: MORPHINE 4 MG/ML INJ. SYRINGE IVP PRN ×2 (18:53→21:11)
[2018-08-11] MEDS ORDERED: DIGOXIN 0.5 MG/2 ML AMP IVP ONE ×2 (19:00→23:15)
[2018-08-11] MEDS ORDERED: DIGOXIN 0.5 MG/2 ML AMP ONE (19:08)
--- NOTE | 2018-08-11 19:13 | NUR ---
CLOSING NOTE: MEDICATION DIGOXIN GIVEN ORDERED. PATIENT IS ON NASAL CANNULA. STILL NOT FEELING WELL. DR. RUIZ IS IN STATION, TO SEE PATIENT. PATIENT COMPLAINING OF HEARTBURN AND NAUSEA. ALL NEEDS MET DURING SHIFT. CALL LIGHT IN REACH, BED IN LOWEST POSITION, AND WILL GIVE REPORT TO NIGHT NURSE.
[2018-08-11] MEDS ORDERED: MAG-AL HYDROX/SIMETH 30 ML UDC PO ONE (19:15)
--- NOTE | 2018-08-11 19:16 | NUR ---
OPENING NOTE Late entry d/t patient care. Received awake, AOx4 and in distress; presently he is experiencing pain and discomfort to chest area, and describing it as heart burn. He was given pain medication by ALESSIA Hernandez in day shift and he reports it's coming down. He is sitting on bed w/ feet dangling down and is presently on 3L NC. ALESSIA Mckay admitting RN is at bedside with patient.
[2018-08-11 20:00] VITALS: BP_SYST 142
--- NOTE | 2018-08-11 21:28 | NUR ---
Comfort Saeed s/w Deisy.
--- NOTE | 2018-08-11 22:42 | NUR ---
Paged Dr. Chauhan s/w Nayeli.
--- NOTE | 2018-08-11 23:03 | NUR ---
Second call for Dr. Chauhan, RN Candida spoke to the doctor.
--- NOTE | 2018-08-11 23:07 | NUR ---
NOTES Spoke with Dr. Chauhan; he ordered one time dose, now of digoxin ivp 0.25mg. Readback and entered order
--- NOTE | 2018-08-11 23:35 | NUR ---
NOTES Administering digoxin IVP as ordered, slowly over 5min. Presently patient is on BIPAP and is not experiencing chest pain.
--- NOTE | 2018-08-11 23:54 | NUR ---
NOTES Presently heart rate is 107 on telemonitor. Will monitor.
[2018-08-12] VITALS (8 sets, daily range): BP systolic 119–139
--- NOTE | 2018-08-12 01:02 | NUR ---
NOTES - converted to sinus rhythm Received call from [facility] compliance monitor, stating patient converted to sinus rhythm with PAC's. Presently HR on monitor is 93 and indeed sinus rhythm. Patient is sleeping and continues to have BIPAP, non labored breathing and no sign of distress noted.
--- NOTE | 2018-08-12 01:31 | NUR ---
NOTES Received call from [employer] to inform that HR momentarily dropped to 45, it did not sustain. Presently on monitor HR is 74. He was repositioned for comfort and I took VS. BP is 139/79 HR 83 and presently denies pain, he also stated doesn't have burning indigestion pain.
[2018-08-12] MEDS: ALBUTEROL SULFATE 0.083% 2.5 MG/3 ML VIAL.NEB INH SCH ×3 (01:38→13:56)
[2018-08-12] MEDS: IPRATROPIUM BROM 0.5 MG/2.5 ML VIAL.NEB (ATROVENT) INH SCH ×3 (01:39→13:56)
--- NOTE | 2018-08-12 03:45 | NUR ---
BIPAP REMOVED RT Removed BIPAP and placed patient on 3L NC.
--- NOTE | 2018-08-12 04:12 | NUR ---
NOTES Patient is awake and sitting on bed with feet dangling. He is on 3L NC and non labored breathing noted. He requested assistance to the restroom he, was connected to the portable oxygen tank and instructed on use of the call light when done.
[2018-08-12] MEDS: methylPREDNISolone SOD SUCC/PF 62.5 MG/ML VIAL IVP SCH (06:44)
[2018-08-12] MEDS: PIPERACILLIN/TAZO 3.375/DEX-IS 50 ML IV SCH (06:44)
[2018-08-12 06:55] LABS: ALANINE AMINOTRANSFERASE 59 U/L (12-78); ALBUMIN 3.3 g/dL (3.4-4.8); ANION GAP 0 (5-15); ASPARTATE AMINOTRANSFERASE 42 U/L (10-37); CALCIUM 8.4 mg/dL (8.4-11.0); CHLORIDE 102 mmol/L (98-107); CREATININE 1.01 mg/dL (0.55-1.30); GLUCOSE 157 mg/dL (70-99); SODIUM SERUM 138 mmol/L (136-145); TOTAL BILIRUBIN 0.4 mg/dL (0.0-1.0); UREA NITROGEN, BLOOD 24 mg/dL (8-21)
[2018-08-12] MEDS: INSULIN REGULAR, HUMAN 100 UNITS/ML, 10 ML VIAL (novoLIN R) SUBCUT PRN ×3 (06:55→17:33)
--- NOTE | 2018-08-12 06:55 | NUR ---
closing note Patient received due medications. Morning glucose accucheck was 162 mg/ dL Needs met throughout shift, will endorse to day shift nurse.
[2018-08-12 07:00] LABS: POTASSIUM 2.9 mmol/L (3.5-5.1)
--- NOTE | 2018-08-12 07:00 | NUR ---
critical lab Received call for critical lab from Benjy Gardner, Potassium level is 2.9, will notify
--- NOTE | 2018-08-12 07:12 | NUR ---
Attending , Dr Morrison was called, re: critical K level (2.9). Spoke to Tammy.
--- NOTE | 2018-08-12 07:25 | NUR ---
critical lab notified Dr. Morrison arrived to nursing unit and was notified of critical lab, he ordered 40meq PO potassium, I read back and verified order.
[2018-08-12] MEDS ORDERED: POTASSIUM CHLORIDE 20 MEQ TAB.PRT.SR PO ONE ×2 (07:45)
--- NOTE | 2018-08-12 08:00 | NUR ---
Note Pt sitting on side of bed eating his breakfast. Pt has O2 on at 3L/nc at this time. Tele unit attached and intact at this time. IV in right Femoral intact and patent infusing IVF's well. No SOB/resp distress or chest pain/discomfort noted at this time. No needs noted at this time. Call light within reach.
[2018-08-12] MEDS: NITROGLYCERIN 0.4 MG/HR PATCH.TD24 TD SCH (08:53)
[2018-08-12] MEDS: ATORVASTATIN 20 MG TABLET PO SCH (08:54)
--- NOTE | 2018-08-12 08:56 | NUR ---
Discharge Planning Phoned Shabana with HCP, , of discharge to SNF order. She was aware and is headed in to [facility] now.
[2018-08-12] MEDS ORDERED: PREDNISONE 20 MG TABLET PO SCH (09:00)
[2018-08-12] MEDS ORDERED: FUROSEMIDE 40 MG TABLET PO SCH (09:00)
[2018-08-12] MEDS ORDERED: METOPROLOL SUCCINATE 50 MG TAB.SR.24H (TOPROL XL) PO SCH (09:00)
[2018-08-12] MEDS ORDERED: PANTOPRAZOLE SODIUM 40 MG TAB PO SCH (09:00)
[2018-08-12] MEDS ORDERED: AMOXICILLIN/CLAVULANATE POTASSIUM 875 MG TABLET PO SCH (09:00)
[2018-08-12] MEDS ORDERED: ASPIRIN 81 MG TAB.CHEW PO SCH (09:00)
[2018-08-12] MEDS ORDERED: LOSARTAN POTASSIUM 25 MG TABLET PO SCH (09:00)
[2018-08-12] MEDS ORDERED: METOPROLOL TARTRATE 25 MG TABLET PO SCH (10:00)
--- NOTE | 2018-08-12 11:00 | NUR ---
Note Pt has been ambulating to the restroom with O2 tank at this time with steady gait. Pt's at bedside at this time. Call light within reach. No needs noted at this time. Call light within reach.
--- NOTE | 2018-08-12 14:15 | NUR ---
Note Pt sitting up on side of bed - finished eating his lunch. Pt's at bedside. Pt assisted getting out of restroom to bed. Pt stable with O2 tank at this time. No weakness/dizziness or lightheadedness noted at this time. Pt now sitting on side of bed with O2 tank at bedside. Pt's has been at bedside most of shift. Call light within reach. No needs noted at this time.
--- NOTE | 2018-08-12 15:47 | NUR ---
patient discharging to SNF, requested [facility] [address] [place] [address] medic 1 ambulance will cone picker at 7:00 pm auth [id number] [phone]
--- NOTE | 2018-08-12 16:00 | NUR ---
Note Pt sitting on side of bed with O2 on at 3L/nc. Pt stable - no needs noted at this time. Call light within reach.
--- NOTE | 2018-08-12 16:40 | NUR ---
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 Addendum: 08/12/18 at 1646 by Brenda Wise RN Pt and his who is at bedside notified of transfer to [facility] at 7pm carrie.
[2018-08-12] MEDS ORDERED: RIVAROXABAN 10 MG TABLET PO SCH (18:00)
--- NOTE | 2018-08-12 18:25 | NUR ---
Note Report was given to Gilles AGGARWAL at [facility]. Pt's was at bedside most of shift. Pt's went home at this time to get pt's C-PAP from home as [facility] does not provide or have one. Pt's right femoral IV was dc'd, site benign - no active bleeding or drainage noted. Pt wanted just gauze applied and no tape - as tape was painful. Pt's tele unit was dc'd and returned to field technical assistant at this time as well. No SOB/resp distress or chest pain/discomfort noted. Pt was checked on q1' and PRN all shift for needs and care. Pt stable. Pt uses O2 at 3L/nc all shift. Pt sat on side of bed or in BS chair all shift. Pt in orange gown and sheet for transfer to [facility]. Pt's took all pt's belongings home. Pt and his checked side table and drawers for belongings. Pt stable and sitting in BS chair waiting for transport to [facility]. No needs noted. Call light within reach all shift. Addendum: 08/12/18 at 1837 by Brenda Wise RN Pt's discharge packet at nurses' station at this time.
--- NOTE | 2018-08-12 19:35 | NUR ---
Note EMT on the floor [facility]. Pt's was called and notified. Discharge packet given to EMT to give [facility] for continuation of care. Pt stable with O2 at 3L/nc.
== END 2018-08-12 19:48 | DRG 280 ==
LOC: SED 13:17 → SIC 15:14 → STU 08-09 18:24
PROVIDERS: ADMIT Internal Medicine Hospice and Palliative Medicine; ATTEND Internal Medicine Hospice and Palliative Medicine
PROC: 30233N1 Transfusion of Nonautologous Red Blood Cells into Peripheral Vein, Percutaneous Approach (ICD-10-PCS; principal; 2018-08-06)
PROC: 06HY33Z Insertion of Infusion Device into Lower Vein, Percutaneous Approach (ICD-10-PCS; 2018-08-06)
PROC: 5A09357 Assistance with Respiratory Ventilation, Less than 24 Consecutive Hours, Continuous Positive Airway Pressure (ICD-10-PCS; 2018-08-07)
PROC: 5A09357 Assistance with Respiratory Ventilation, Less than 24 Consecutive Hours, Continuous Positive Airway Pressure (ICD-10-PCS; 2018-08-08)
PROC: 5A09357 Assistance with Respiratory Ventilation, Less than 24 Consecutive Hours, Continuous Positive Airway Pressure (ICD-10-PCS; 2018-08-09)
PROC: 5A09357 Assistance with Respiratory Ventilation, Less than 24 Consecutive Hours, Continuous Positive Airway Pressure (ICD-10-PCS; 2018-08-10)
PROC: 5A09357 Assistance with Respiratory Ventilation, Less than 24 Consecutive Hours, Continuous Positive Airway Pressure (ICD-10-PCS; 2018-08-11)
PROC: 5A09357 Assistance with Respiratory Ventilation, Less than 24 Consecutive Hours, Continuous Positive Airway Pressure (ICD-10-PCS; 2018-08-12)
DX: I21.4 Non-ST elevation (NSTEMI) myocardial infarction (principal); J96.20 Acute and chronic respiratory failure, unspecified whether with hypoxia or hypercapnia; J18.1 Lobar pneumonia, unspecified organism; G40.209 Localization-related (focal) (partial) symptomatic epilepsy and epileptic syndromes with complex partial seizures, not intractable, without status epilepticus; J44.0 Chronic obstructive pulmonary disease with (acute) lower respiratory infection; J44.1 Chronic obstructive pulmonary disease with (acute) exacerbation; D50.9 Iron deficiency anemia, unspecified; E11.40 Type 2 diabetes mellitus with diabetic neuropathy, unspecified; E11.65 Type 2 diabetes mellitus with hyperglycemia; E66.01 Morbid (severe) obesity due to excess calories; E78.5 Hyperlipidemia, unspecified; I11.0 Hypertensive heart disease with heart failure; G47.33 Obstructive sleep apnea (adult) (pediatric); I25.10 Atherosclerotic heart disease of native coronary artery without angina pectoris; E78.00 Pure hypercholesterolemia, unspecified; I48.0 Paroxysmal atrial fibrillation; I50.9 Heart failure, unspecified; K21.9 Gastro-esophageal reflux disease without esophagitis; F17.210 Nicotine dependence, cigarettes, uncomplicated; D64.9 Anemia, unspecified; I27.20 Pulmonary hypertension, unspecified; R91.8 Other nonspecific abnormal finding of lung field; J84.10 Pulmonary fibrosis, unspecified; R59.9 Enlarged lymph nodes, unspecified; I24.8 Other forms of acute ischemic heart disease; I25.5 Ischemic cardiomyopathy; Z79.02 Long term (current) use of antithrombotics/antiplatelets; Z79.82 Long term (current) use of aspirin; Z79.83 Long term (current) use of bisphosphonates; Z79.899 Other long term (current) drug therapy; Z90.49 Acquired absence of other specified parts of digestive tract; Z99.81 Dependence on supplemental oxygen; Z86.73 Personal history of transient ischemic attack (TIA), and cerebral infarction without residual deficits; Z95.0 Presence of cardiac pacemaker; Z68.33 Body mass index [BMI] 33.0-33.9, adult; Z79.84 Long term (current) use of oral hypoglycemic drugs
CPT/HCPCS: 36415; 36600; 71045; 71275; 80048; 80053; 80061; 81000-TC; 82728; 82803-TC; 82962; 83010; 83540-TC; 83550-TC; 83605; 83615-TC; 83880; 84484; 85025; 85044-TC; 85610-TC; 85651-TC; 85730-TC; 86140; 86880-TC; 86886; 86900; 86901; 86920; 87040-TC; 87081; 93005; 93306; 94640; 94660; 94760; 96361; 96365; 96375; 99291; C1751; C9113; G0378; J0456; J1160; J1200; J1644; J1650; J1815; J1940; J1956; J2270; J2543; J2930; J3490; J7030; J7050; J7512; J7613; J7620; P9021; Q9964; Q9967